=== PATIENT | male | born 1955 | race Caucasian/White ===

== ENCOUNTER → 2017-09-09 07:45 | Outpatient (CLI) | payer MEDICAID, SELFPAY ==
[2017-09-09 08:30] LABS: Anion Gap 7 (5-15); BUN 11 mg/dL (7-18); BUN/Creat Ratio 10.1 RATIO (10-20); Calcium,Total 8.6 mg/dL (8.5-10.1); Chloride 108 mmol/L (98-107); Cholesterol 152 mg/dL (200); Creatinine, Serum 1.09 mg/dL (0.70-1.30); EST Glomerular Filtration Rate 72 mL/min (>60); Est Glom Filt Rate - Afr Amer 88 mL/min (>60); Glucose 106 mg/dL (74-106); High Density Lipoprotein 29 mg/dL; Potassium 4.1 mmol/L (3.5-5.1); Sodium Level 141 mmol/L (136-145); Triglycerides 97 mg/dL; Very Low Density Lipoprotein 19 mg/dL (5-40)
== END ==
PROVIDERS: Family Provider Family Medicine; PCP Family Medicine; Visit Provider Family Medicine
DX: I10 Essential (primary) hypertension (principal)
CPT/HCPCS: 36415; 80048; 80061

== ENCOUNTER → 2018-03-11 10:33 | Outpatient (CLI) | payer MEDICAID, SELFPAY ==
[2018-03-11 12:05] LABS: Anion Gap 6 (5-15); BUN 15 mg/dL (7-18); BUN/Creat Ratio 14.4 RATIO (10-20); Calcium,Total 9.1 mg/dL (8.5-10.1); Chloride 105 mmol/L (98-107); Creatinine, Serum 1.04 mg/dL (0.70-1.30); EST Glomerular Filtration Rate 76 mL/min (>60); Est Glom Filt Rate - Afr Amer 92 mL/min (>60); Glucose 99 mg/dL (74-106); Potassium 4.4 mmol/L (3.5-5.1); Sodium Level 141 mmol/L (136-145)
== END ==
PROVIDERS: Family Provider Family Medicine; PCP Family Medicine; Visit Provider Family Medicine
DX: I10 Essential (primary) hypertension (principal)
CPT/HCPCS: 36415; 80048

== ENCOUNTER → 2018-09-07 08:03 | Outpatient (CLI) | payer MEDICARE, SELFPAY ==
[2018-09-07 10:10] LABS: Absolute Lymphocyte Count 2.22 X10^3/ul (0.83-4.51); Absolute Neutrophil Count 3.6 X10^3/uL (2.0-7.7); Basophil# 0.02 X10^3/uL; Basophil% 0.3 % (0-1); Eosinophil# 0.09 X10^3/uL; Eosinophils% 1.4 % (0-5); Hematocrit 47.7 % (40-54); Hemoglobin 15.9 g/dl (13.0-16.5); Lymphocyte # 2.22 X10^3/ul (4.0); Lymphocyte % 34.2 % (19-41); Mean Corp Hgb Conc 33.3 g/gl (32-36); Mean Corpuscular Hgb 29.2 pg (27.0-32.0); Mean Corpuscular Volume 87.5 fL (80-94); Mean Platelet Vol. 10.1 fl (6.2-12.0); Monocyte# 0.53 X10^3/uL; Monocyte% 8.2 % (0-10); Neutrophil # 3.62 X10^3/uL (2.7-7.7); Neutrophil % 55.7 % (47-70); POSITIVE COUNT NO; POSITIVE DIFFERENTIAL NO; POSITIVE MORPHOLOGY NO; Platelet Count 264 K/mm3 (150-450); RBC Distribution Width CV 13.2 % (11.6-14.6); RBC Distribution Width SD 42.4 fl (35.1-43.9); Red Blood Count 5.45 M/mm3 (4.6-6.2); White Blood Count 6.5 K/mm3 (4.4-11.0)
[2018-09-07 11:33] LABS: Anion Gap 8 (5-15); BUN 13 mg/dL (7-18); BUN/Creat Ratio 12.9 RATIO (10-20); Calcium,Total 9.1 mg/dL (8.5-10.1); Chloride 106 mmol/L (98-107); Cholesterol 179 mg/dL (200); Creatinine, Serum 1.01 mg/dL (0.70-1.30); EST Glomerular Filtration Rate 79 mL/min (>60); Est Glom Filt Rate - Afr Amer 96 mL/min (>60); Glucose 103 mg/dL (74-106); High Density Lipoprotein 33 mg/dL; Potassium 4.5 mmol/L (3.5-5.1); Sodium Level 142 mmol/L (136-145); Triglycerides 130 mg/dL; Very Low Density Lipoprotein 26 mg/dL (5-40)
== END ==
PROVIDERS: Family Provider Family Medicine; PCP Family Medicine; Referring Provider Family Medicine; Visit Provider Family Medicine
DX: I10 Essential (primary) hypertension (principal); K92.2 Gastrointestinal hemorrhage, unspecified
CPT/HCPCS: 36415; 80048; 80061; 85025

== ENCOUNTER → 2018-12-09 11:40 | Outpatient (CLI) | payer MEDICARE, SELFPAY ==
[2017-04-15 09:08] VITALS: BMI 30.3
[2018-12-09 14:05] LABS: Absolute Lymphocyte Count 2.23 X10^3/uL (0.83-4.51); Absolute Neutrophil Count 4.9 X10^3/uL (2.0-7.7); Basophil# 0.02 X10^3/uL; Basophil% 0.3 % (0-1); Eosinophil# 0.08 X10^3/uL; Hematocrit 45.4 % (40-54); Hemoglobin 15.5 g/dL (13.0-16.5); Lymphocyte # 2.23 X10^3/ul (4.0); Mean Corp Hgb Conc 34.1 g/dL (32-36); Mean Corpuscular Hgb 30.2 pg (27.0-32.0); Mean Corpuscular Volume 88.3 fL (80-94); Mean Platelet Vol. 9.8 fl (6.2-12.0); Monocyte# 0.69 X10^3/uL; Monocyte% 8.7 % (0-10); NRBC Flagged by Analyzer 0 % (0-5); Neutrophil # 4.92 X10^3/uL (2.7-7.7); Neutrophil % 61.6 % (47-70); Platelet Count 277 K/mm3 (150-450); RBC Distribution Width CV 12.7 % (11.6-14.6); RBC Distribution Width SD 41.1 fl (35.1-43.9); Red Blood Count 5.14 M/mm3 (4.6-6.2)
[2018-12-09 14:18] LABS: ALB/GLOB Ratio 0.9 RATIO (0.9-2.4); AST(SGOT) 15 U/L (15-37); Alanine Aminotransfer ALT/SGPT 32 U/L (16-61); Albumin, Serum 3.6 g/dL (3.2-5.0); Alkaline Phosphatase 116 U/L (45-117); Anion Gap 6 (5-15); BUN 14 mg/dL (7-18); BUN/Creat Ratio 13.1 RATIO (10-20); Calcium,Total 9.1 mg/dL (8.5-10.1); Chloride 107 mmol/L (98-107); Creatinine, Serum 1.07 mg/dL (0.70-1.30); EST Glomerular Filtration Rate 74 mL/min (>60); Est Glom Filt Rate - Afr Amer 89 mL/min (>60); Globulin 3.9 g/dL (2.2-4.2); Glucose 107 mg/dL (74-106); Lipase 91 U/L (73-393); Potassium 3.9 mmol/L (3.5-5.1); Protein, Total 7.5 g/dL (6.4-8.2); Sodium Level 140 mmol/L (136-145)
== END ==
PROVIDERS: Family Provider Family Medicine; PCP Family Medicine; Referring Provider Family Medicine; Visit Provider Family Medicine
DX: R10.9 Unspecified abdominal pain (principal)
CPT/HCPCS: 36415; 80053; 83690; 85025

== ENCOUNTER → 2018-12-09 12:30 | Outpatient (CLI) | payer MEDICARE, SELFPAY ==
--- NOTE | 2018-12-09 12:50 | CT_ITS ---
STUDY: CT ABDOMEN AND PELVIS WITH CONTRAST REASON FOR EXAM: Male, 63 years old. 2 day history of lower abdominal pain. RADIATION DOSAGE (If Supplied By Facility): CTDIvol = ( 15.27 ) mGy, DLP = ( 958.14 ) mGycm TECHNIQUE: Transaxial images were obtained from the dome of the diaphragm to the symphysis pubis with oral contrast. 100 IV/Oral Isovue 300 was administered. Sagittal and coronal images were reconstructed. Individualized dose optimization techniques were used for this CT. COMPARISON: None. FINDINGS: The visualized lung bases are unremarkable. The visualized portions of the heart are within normal limits. There is decreased attenuation of the liver consistent with steatosis. Normal gallbladder and extrahepatic biliary system. There are multiple benign calcified granulomata of the spleen. Normal pancreas. Normal bilateral adrenal glands. Focal cortical calcification in the lateral inferior aspect of the right kidney. This is unchanged. 8.8 mm cyst in the lower pole of the left kidney. Normal visualized stomach. Normal small intestine. There are multiple colonic diverticula consistent with diverticulosis. The appendix is visualized and appears normal. There is diffuse atherosclerotic calcification of the abdominal aorta, without a demonstrated aneurysm. Normal inferior vena cava. Normal retroperitoneum. Normal urinary bladder. There is enlargement of the prostate gland. There is indentation at the bladder base. Calcifications in the prostate. There is a small umbilical hernia containing fat. Normal osseous structures. CT/Abdomen/Pelvis WITH Contrast IMPRESSION: Sigmoid diverticulosis with thickening of the sigmoid colon. Fatty infiltration of the liver. Electronically Signed: Carlos Chandler, at 16:10 EDT , Service support ,
== END ==
PROVIDERS: Family Provider Family Medicine; PCP Family Medicine; Referring Provider Family Medicine; Visit Provider Family Medicine
DX: K57.30 Diverticulosis of large intestine without perforation or abscess without bleeding (principal); K76.0 Fatty (change of) liver, not elsewhere classified; R10.9 Unspecified abdominal pain
CPT/HCPCS: 36415; 74177; 80053; 83690; 85025; Q9967

== ENCOUNTER → 2019-06-29 | Outpatient (CLI) | payer MEDICARE, SELFPAY ==
[2017-04-15 09:08] VITALS: BMI 30.3
== END | disposition home or self-care (01) ==
LOC: LABSPEC 10:40
PROVIDERS: PCP Family Medicine; Referring Provider Family Medicine; Visit Provider Family Medicine
DX: L02.91 Cutaneous abscess, unspecified (principal)
CPT/HCPCS: 87070; 87075; 87205

== ENCOUNTER → 2019-07-18 08:31 | Outpatient (CLI) | payer MEDICARE, SELFPAY ==
[2017-04-15 09:08] VITALS: BMI 30.3
[2019-07-18 10:32] LABS: Anion Gap 4 (5-15); BUN 17 mg/dL (7-18); BUN/Creat Ratio 16.5 RATIO (10-20); Calcium,Total 8.9 mg/dL (8.5-10.1); Chloride 105 mmol/L (98-107); Cholesterol 163 mg/dL (200); Creatinine, Serum 1.03 mg/dL (0.70-1.30); EST Glomerular Filtration Rate 77 mL/min (>60); Est Glom Filt Rate - Afr Amer 93 mL/min (>60); Glucose 88 mg/dL (74-106); High Density Lipoprotein 31 mg/dL; Potassium 3.8 mmol/L (3.5-5.1); Sodium Level 139 mmol/L (136-145); Triglycerides 165 mg/dL; Very Low Density Lipoprotein 33 mg/dL (5-40)
== END ==
PROVIDERS: PCP Family Medicine; Referring Provider Family Medicine; Visit Provider Family Medicine
DX: I10 Essential (primary) hypertension (principal)
CPT/HCPCS: 36415; 80048; 80061

== ENCOUNTER → 2019-09-16 06:37 | Outpatient (CLI) | payer MEDICARE, SELFPAY ==
--- NOTE | 2019-09-16 16:21 | STRESSREP ---
Stress Test Report Exercise myocardial perfusion stress test. 64-year-old man with a history of chest pain. Stress protocol: Resting EKG demonstrates sinus rhythm with a rate of 57 bpm normal intervals are noted resting blood pressures 144/82 mmHg. The patient exercised according to regular Eddie protocol for a total duration of 6 minutes the maximum heart rate attained was 127 bpm which was 82% of maximum practice heart rate the maximum workload was 7 metabolic equivalents. At rest there were no ST or T wave changes noted to suggest ischemia at peak exercise upsloping ST changes only were noted with no meet the criteria for ischemia. Patient was noted to be fatigued but no angina was present. The test was terminated due to the target heart rate being achieved as well as dyspnea. The maximum heart rate attained was 127 bpm and the maximum blood pressure was 182/80 mmHg with a rate-pressure product of 22,900. Myocardial perfusion protocol. 15.0 mCi of technetium 99m sestamibi was injected at rest. The patient exercised according to regular Eddie protocol for a total duration of 6 minutes at peak exercise 45.0 mCi of technetium 99m sestamibi was injected stress images were obtained stress and rest images were reconstructed and compared in the short axis vertical long horizontal long axis. Gated images were also obtained Perfusion SPECT analysis: Review of the stress images demonstrate normal uptake of tracer noted in all areas of the myocardium the resting images similarly demonstrate normal uptake of tracer noted in all areas of the myocardium. No reversibility is noted to suggest ischemia no previous infarct is noted. Gated SPECT analysis: The gated ejection fraction is 68%. Conclusion: Normal exercise myocardial perfusion stress test with no evidence of ischemia at a moderate workload Good functional capacity. Preserved ejection fraction.
== END ==
PROVIDERS: PCP Family Medicine; Referring Provider Family Medicine; Visit Provider Family Medicine
DX: R07.89 Other chest pain (principal)
CPT/HCPCS: 78452; 93017; A9500; A4216

== ENCOUNTER → 2020-01-18 08:23 | Outpatient (CLI) | payer MEDICARE, SELFPAY ==
[2017-04-15 09:08] VITALS: BMI 30.3
[2020-01-18 10:07] LABS: Anion Gap 3 (5-15); BUN 13 mg/dL (7-18); BUN/Creat Ratio 11.6 RATIO (10-20); Chloride 110 mmol/L (98-107); Creatinine, Serum 1.12 mg/dL (0.70-1.30); EST Glomerular Filtration Rate 70 mL/min (>60); Est Glom Filt Rate - Afr Amer 84 mL/min (>60); Glucose 106 mg/dL (74-106); Potassium 4.4 mmol/L (3.5-5.1); Sodium Level 142 mmol/L (136-145)
== END ==
PROVIDERS: PCP Family Medicine; Referring Provider Family Medicine; Visit Provider Family Medicine
DX: I10 Essential (primary) hypertension (principal)
CPT/HCPCS: 36415; 80048

== ENCOUNTER → 2020-04-23 08:41 | Outpatient (CLI) | payer MEDICARE, SELFPAY ==
[2020-04-11 09:43] VITALS: BMI 33.7
[2020-04-23 09:57] LABS: Anion Gap 5 (5-15); BUN 13 mg/dL (7-18); BUN/Creat Ratio 13.5 RATIO (10-20); Calcium,Total 9.1 mg/dL (8.5-10.1); Chloride 106 mmol/L (98-107); Cholesterol 176 mg/dL (200); Creatinine, Serum 0.96 mg/dL (0.70-1.30); EST Glomerular Filtration Rate 83 mL/min (>60); Est Glom Filt Rate - Afr Amer 100 mL/min (>60); Glucose 98 mg/dL (74-106); High Density Lipoprotein 27 mg/dL; Potassium 4.3 mmol/L (3.5-5.1); Sodium Level 138 mmol/L (136-145); Triglycerides 256 mg/dL; Very Low Density Lipoprotein 51 mg/dL (5-40)
== END ==
PROVIDERS: PCP Family Medicine; Visit Provider Family Medicine
DX: I10 Essential (primary) hypertension (principal)
CPT/HCPCS: 36415; 80048; 80061

== ENCOUNTER → 2020-10-22 08:14 | Outpatient (CLI) | payer MEDICARE, SELFPAY ==
[2020-04-11 09:43] VITALS: BMI 33.7
[2020-10-22 10:27] LABS: Anion Gap 7 (5-15); BUN 15 mg/dL (7-18); BUN/Creat Ratio 15.3 RATIO (10-20); Calcium,Total 9.2 mg/dL (8.5-10.1); Chloride 105 mmol/L (98-107); Cholesterol 174 mg/dL (200); Creatinine, Serum 0.98 mg/dL (0.70-1.30); EST Glomerular Filtration Rate 81 mL/min (>60); Est Glom Filt Rate - Afr Amer 98 mL/min (>60); Glucose 117 mg/dL (74-106); High Density Lipoprotein 29 mg/dL; Potassium 4.2 mmol/L (3.5-5.1); Sodium Level 140 mmol/L (136-145); Triglycerides 133 mg/dL; Very Low Density Lipoprotein 27 mg/dL (5-40)
== END ==
PROVIDERS: PCP Family Medicine; Visit Provider Family Medicine
DX: I10 Essential (primary) hypertension (principal)
CPT/HCPCS: 36415; 80048; 80061

== ENCOUNTER → 2021-04-18 08:30 | Outpatient (CLI) | payer MEDICARE, SELFPAY ==
[2021-04-18 11:17] LABS: Anion Gap 6 (5-15); BUN 15 mg/dL (7-18); BUN/Creat Ratio 14.7 RATIO (10-20); Calcium,Total 9.4 mg/dL (8.5-10.1); Chloride 110 mmol/L (98-107); Cholesterol 171 mg/dL (200); Creatinine, Serum 1.02 mg/dL (0.70-1.30); EST Glomerular Filtration Rate 77 mL/min (>60); Est Glom Filt Rate - Afr Amer 93 mL/min (>60); Glucose 107 mg/dL (74-106); High Density Lipoprotein 28 mg/dL; Potassium 4.2 mmol/L (3.5-5.1); Sodium Level 141 mmol/L (136-145); Triglycerides 117 mg/dL; Very Low Density Lipoprotein 23 mg/dL (5-40)
== END ==
PROVIDERS: PCP Family Medicine; Referring Provider Family Medicine; Visit Provider Family Medicine
DX: I10 Essential (primary) hypertension (principal)
CPT/HCPCS: 36415; 80048; 80061

== ENCOUNTER → 2021-10-14 | Outpatient (CLI) | payer OTHER, SELFPAY ==
[2021-10-14 10:47] LABS: Anion Gap 6 (5-15); BUN 16 mg/dL (7-18); BUN/Creat Ratio 16.6 RATIO (10-20); Calcium,Total 9.3 mg/dL (8.5-10.1); Chloride 109 mmol/L (98-107); Cholesterol 176 mg/dL (200); Creatinine, Serum 0.96 mg/dL (0.70-1.30); EST Glomerular Filtration Rate 83 mL/min (>60); Est Glom Filt Rate - Afr Amer 100 mL/min (>60); Glucose 113 mg/dL (74-106); High Density Lipoprotein 27 mg/dL; Potassium 4.2 mmol/L (3.5-5.1); Sodium Level 139 mmol/L (136-145); Triglycerides 115 mg/dL; Very Low Density Lipoprotein 23 mg/dL (5-40)
== END | disposition home or self-care (01) ==
LOC: MFPLAB 08:29
PROVIDERS: PCP Family Medicine; Visit Provider Family Medicine
DX: I10 Essential (primary) hypertension (principal)
CPT/HCPCS: 36415; 80048; 80061

== ENCOUNTER → 2022-02-20 | Outpatient (CLI) | payer OTHER, SELFPAY ==
[2022-02-20 12:49] LABS: Anion Gap 7 (5-15); BUN 15 mg/dL (7-18); BUN/Creat Ratio 13.4 RATIO (10-20); Chloride 107 mmol/L (98-107); Cholesterol 164 mg/dL (200); Creatinine, Serum 1.12 mg/dL (0.70-1.30); EST Glomerular Filtration Rate 69 mL/min (>60); Est Glom Filt Rate - Afr Amer 84 mL/min (>60); Glucose 104 mg/dL (74-106); High Density Lipoprotein 29 mg/dL; Potassium 4.4 mmol/L (3.5-5.1); Sodium Level 138 mmol/L (136-145); Triglycerides 153 mg/dL; Very Low Density Lipoprotein 31 mg/dL (5-40)
== END | disposition home or self-care (01) ==
LOC: MFPLAB 09:55
PROVIDERS: PCP Family Medicine; Referring Provider Family Medicine; Visit Provider Family Medicine
DX: I10 Essential (primary) hypertension (principal)
CPT/HCPCS: 36415; 80048; 80061

== ENCOUNTER → 2022-05-14 | Outpatient (CLI) | payer MEDICARE, MEDICAID, SELFPAY ==
--- NOTE | 2022-05-14 12:02 | RAD_ITS ---
STUDY: X-RAY CHEST REASON FOR EXAM: Male, 66 years old. COUGH TECHNIQUE: XR Chest 2 Views COMPARISON: Prior comparison studies are not available for review at this time. FINDINGS: There is atherosclerotic calcification of the aortic arch with tortuosity. There are diffuse degenerative changes of the visualized thoracic spine. There is degenerative osteoarthritis of the bilateral shoulders. There is no demonstrated pleural abnormality. Normal size heart. Normal mediastinum and susan. Normal visualized pulmonary arteries. There is no demonstrated abnormality of the visualized soft tissue structures of the upper abdomen. RAD/Chest PA and Lateral IMPRESSION: There are no acute findings. Electronically Signed: Albin Teran MD at 17:44 EST ,
[2022-05-14 15:23] LABS: Hematocrit 46.7 % (40-54); Hemoglobin 15.5 g/dL (13.0-16.5); Mean Corp Hgb Conc 33.2 g/dL (32-36); Mean Corpuscular Hgb 29.4 pg (27.0-32.0); Mean Corpuscular Volume 88.4 fL (80-94); Mean Platelet Vol. 10.2 fl (6.2-12.0); Platelet Count 264 K/mm3 (150-450); RBC Distribution Width SD 42.3 fl (35.1-43.9); Red Blood Count 5.28 M/mm3 (4.6-6.2); White Blood Count 5.8 K/mm3 (4.4-11.0)
[2022-05-14 15:38] LABS: Anion Gap 8 (5-15); BUN 13 mg/dL (7-18); BUN/Creat Ratio 11.1 RATIO (10-20); Calcium,Total 9.4 mg/dL (8.5-10.1); Chloride 100 mmol/L (98-107); Creatinine, Serum 1.17 mg/dL (0.70-1.30); EST Glomerular Filtration Rate 66 mL/min (>60); Est Glom Filt Rate - Afr Amer 80 mL/min (>60); Glucose 128 mg/dL (74-106); Potassium 4.3 mmol/L (3.5-5.1); Sodium Level 134 mmol/L (136-145)
== END | disposition home or self-care (01) ==
PROVIDERS: PCP Family Medicine; Referring Provider Family Medicine; Visit Provider Family Medicine
DX: R05.9 Cough, unspecified (principal)
CPT/HCPCS: 36415; 71046; 80048; 85027

== ENCOUNTER 2022-12-23 08:16 | Emergency (ER) | payer MEDICARE, MEDICAID, SELFPAY ==
[2022-12-23 08:18] VITALS: BP 178/83; PULSE 71; RESP 14; TEMP 36.6; O2SAT 99; BMI 31.5
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
== END 2022-12-23 09:52 | disposition home or self-care (01) ==
PROVIDERS: Emergency Provider Emergency Medicine; PCP Family Medicine; Visit Provider Emergency Medicine
DX: M54.50 Low back pain, unspecified (principal); V59.9XXA Occupant (driver) (passenger) of pick-up truck or van injured in unspecified traffic accident, initial encounter; Z87.891 Personal history of nicotine dependence
CPT/HCPCS: 99282

== ENCOUNTER → 2023-01-22 | Outpatient (CLI) | payer MEDICARE, MEDICAID, SELFPAY ==
--- NOTE | 2023-01-22 10:43 | RAD_ITS ---
EXAM: XR LUMBOSACRAL SPINE, 4 OR 5 VIEWS CLINICAL INDICATION: PAIN TECHNIQUE: Frontal, lateral and bilateral oblique views of the lumbar spine. COMPARISON: No relevant prior studies available. FINDINGS: VERTEBRAE: Unremarkable. Preserved vertebral body height. No fracture. No spondylolisthesis. Preservation of the normal lumbar lordosis. No significant facet arthropathy. DISC SPACES: No acute findings. Disc spaces are maintained. GASTROINTESTINAL TRACT: Unremarkable as visualized. Included bowel gas pattern is non-obstructive. RAD/L/S Spine Min 4 Views IMPRESSION: No evidence of lumbar spinal fracture or spondylolisthesis. Electronically Signed: Evan Aparicio MD at 19:37 EDT ,
== END | disposition home or self-care (01) ==
LOC: MTRAD 10:38
PROVIDERS: PCP Family Medicine; Visit Provider Family Medicine
DX: M54.9 Dorsalgia, unspecified (principal)
CPT/HCPCS: 72110

== ENCOUNTER → 2023-02-02 | Outpatient (CLI) | payer MEDICARE, MEDICAID, SELFPAY ==
[2023-02-02 12:34] LABS: Anion Gap 4 (5-15); BUN 12 mg/dL (7-18); BUN/Creat Ratio 12.2 RATIO (10-20); Calcium,Total 9.7 mg/dL (8.5-10.1); Chloride 104 mmol/L (98-107); Creatinine, Serum 0.99 mg/dL (0.70-1.30); EST Glomerular Filtration Rate 80 mL/min (>60); Est Glom Filt Rate - Afr Amer 97 mL/min (>60); Glucose 112 mg/dL (74-106); PSA,Total- Diagnostic 3.29 ng/mL (0.0-4.0); Potassium 4.6 mmol/L (3.5-5.1); Sodium Level 137 mmol/L (136-145)
== END | disposition home or self-care (01) ==
PROVIDERS: PCP Family Medicine; Referring Provider Family Medicine; Visit Provider Family Medicine
DX: R82.90 Unspecified abnormal findings in urine (principal); R39.11 Hesitancy of micturition
CPT/HCPCS: 36415; 80048; 84153; 87086

== ENCOUNTER → 2023-02-19 | Outpatient (CLI) | payer MEDICARE, MEDICAID, SELFPAY ==
[2023-02-19 10:50] LABS: Cholesterol 180 mg/dL (200); High Density Lipoprotein 32 mg/dL; Triglycerides 163 mg/dL; Very Low Density Lipoprotein 33 mg/dL (5-40)
== END | disposition home or self-care (01) ==
LOC: MFPLAB 08:26
PROVIDERS: PCP Family Medicine; Visit Provider Family Medicine
DX: I10 Essential (primary) hypertension (principal)
CPT/HCPCS: 36415; 80061

== ENCOUNTER → 2023-08-19 | Outpatient (CLI) | payer MEDICARE, MEDICAID, SELFPAY ==
[2023-08-19 10:30] LABS: Anion Gap 4 (5-15); BUN 12 mg/dL (7-18); Calcium,Total 9.3 mg/dL (8.5-10.1); Chloride 110 mmol/L (98-107); Cholesterol 167 mg/dL (200); Creatinine, Serum 1.09 mg/dL (0.70-1.30); EST Glomerular Filtration Rate 71 mL/min (>60); Est Glom Filt Rate - Afr Amer 86 mL/min (>60); Glucose 107 mg/dL (74-106); High Density Lipoprotein 28 mg/dL; Potassium 4.3 mmol/L (3.5-5.1); Sodium Level 140 mmol/L (136-145); Triglycerides 126 mg/dL; Very Low Density Lipoprotein 25 mg/dL (5-40)
== END | disposition home or self-care (01) ==
LOC: MFPLAB 08:41
PROVIDERS: PCP Family Medicine; Visit Provider Family Medicine
DX: I10 Essential (primary) hypertension (principal)
CPT/HCPCS: 36415; 80048; 80061

== ENCOUNTER → 2024-02-18 | Outpatient (CLI) | payer MEDICARE, MEDICAID, SELFPAY ==
[2024-02-18 10:47] LABS: Anion Gap 5 (5-15); BUN 12 mg/dL (7-18); BUN/Creat Ratio 12.8 RATIO (10-20); Calcium,Total 9.6 mg/dL (8.5-10.1); Chloride 109 mmol/L (98-107); Cholesterol 158 mg/dL (200); Creatinine, Serum 0.93 mg/dL (0.70-1.30); EST Glomerular Filtration Rate 85 mL/min (>60); Est Glom Filt Rate - Afr Amer 103 mL/min (>60); Glucose 119 mg/dL (74-106); High Density Lipoprotein 30 mg/dL; Potassium 3.9 mmol/L (3.5-5.1); Sodium Level 140 mmol/L (136-145); Triglycerides 122 mg/dL; Very Low Density Lipoprotein 24 mg/dL (5-40)
== END | disposition home or self-care (01) ==
LOC: MFPLAB 08:33
PROVIDERS: PCP Family Medicine; Visit Provider Family Medicine
DX: I10 Essential (primary) hypertension (principal)
CPT/HCPCS: 36415; 80048; 80061

== ENCOUNTER → 2024-03-01 | Outpatient (CLI) | payer MEDICARE, SELFPAY ==
[2024-03-01 17:03] LABS: PSA,Total- Diagnostic 2.35 ng/mL (0.0-4.0)
== END | disposition home or self-care (01) ==
LOC: LAB 15:19
PROVIDERS: PCP Family Medicine; Referring Provider Urology; Visit Provider Urology
DX: R97.20 Elevated prostate specific antigen [PSA] (principal)
CPT/HCPCS: 36415; 84153

== ENCOUNTER 2024-06-06 17:21 | Inpatient (IN) | payer MEDICARE, SELFPAY ==
[2024-06-06] VITALS (10 sets, daily range): BP systolic 113–148; BP diastolic 63–83; PULSE 58–80; RESP 15–20; TEMP 36.2–36.7; O2SAT 93–99; BMI 29.3; BMI 29.1
--- NOTE | 2024-06-06 17:43 | EKG12_ITS ---
Test Reason : CP Blood Pressure : */* mmHG Vent. Rate : 60 BPM Atrial Rate : 60 BPM P-R Int : 180 ms QRS Dur : 90 ms QT Int : 416 ms P-R-T Axes : 35 -7 26 degrees QTcB Int : 416 ms Normal sinus rhythm Inferior infarct , age undetermined Abnormal ECG Confirmed by VLADIMIR PEREIRA, JOSE CARLOS ([id number]), telegraph editor JAIDEN ALVAREZ ([id number]) on 06/08/2024 6:24:44 AM Referred By: DELGADO/AJ Confirmed By: JOSE CARLOS GILBERT MD
--- NOTE | 2024-06-06 18:11 | EDS_ITS ---
HPI History of Present Illness Chief Complaint: Chest Pain Informant: patient and spouse/S.O. Narrative Narrative: Sent in by PCP for elevated troponin with chest pain symptoms. Patient hard of hearing here with spouse. History of hypertension on medications, hy perlipidemia diet controlled both parents with CABG procedures in their 50s. He has been having 2 weeks of intermittent chest tightness primary before bed and when he awakens. States squeezing sensations that would go away after 5 minutes. No arm numbness no neck pain no jaw pain no dyspnea no nausea no diaphoresis. He initially saw his PCP a week ago had minimal cough put on a Z- Parvez which she started on Thursday. He returned today due to continued symptoms with outpatient labs. This troponin on review was 105. D-dimer 0.56 which is normal for age-adjusted. Chest x-ray reviewed negative. Basic labs normal creatinine normal hemoglobin. However states 45 minutes ago symptoms returned with squeezing sensations he is having intermittent symptoms here in the ER. Denies exertional symptoms. Stress test last time 10 years ago no history of heart caths. He took 1 baby aspirin today. Prior Similar Symptoms: No CVD Risk Factors: Positive for Hypertension, Hypercholesterolemia and Family History 1' </=55; Negative for Diabetes or Smoking PE Risk Factors: Negative for Recent Travel/Surgery, Recent Immobilization or Prior DVT or PE [facility] Medical History Umbilical hernia History of rectal abscess Back pain HTN (hypertension) Home Medications ?Medication ?Instructions ?Recorded ?Last Taken ?Type lisinopril 10 mg tablet 10 mg PO DAILY 01/16/14 06/06/24 History aspirin 81 mg tablet,delayed 81 mg PO DAILY 04/11/20 06/06/24 History release (Adult Low Dose Aspirin) metoprolol tartrate 25 mg tablet 25 mg PO BID 04/11/20 06/06/24 History polyethylene glycol 400 0.25 % eye 1 - 2 drp ophthalmic (eye) DAILY 06/06/24 Unknown History drops (Blink Tears) PRN eye irritation tamsulosin 0.4 mg capsule 0.4 mg PO QHS 06/06/24 06/05/24 History Allergy/AdvReac Type Severity Reaction Status Date / Time tetrahydrozoline Allergy Mild rash Verified 06/06/24 17:22 Family History Father Heart disease CVA (cerebral vascular accident) Mother Heart disease Surgical History History of tooth extraction History of colonoscopy (~2019) History of amputation of toe Social History Smoking Status: Former smoker ROS ROS ED Constitutional Constitutional ED: Denies chills, fever(s) or sweats ENT ENT ED: Denies sore throat Cardiovascular Cardiovascular: Reports chest pain; Denies leg edema, palpitations or racing heartbeat Respiratory/Chest Respiratory/Chest: Denies cough, dyspnea or dyspnea on exertion Gastrointestinal Gastrointestinal: Denies abdominal pain, diarrhea, nausea or vomiting Genitourinary Genitourinary ED: Denies dysuria, hematuria or urinary frequency Musculoskeletal Musculoskeletal: Denies back pain, extremity pain or neck pain Integumentary Denies rash or wounds Neurologic Neurologic: Denies headache(s), paresthesias or weakness EXAM Physical Exam Const Vital Signs: 06/06/24 17:22 06/06/24 18:13 06/06/24 18:16 Temperature 97.2 F L Temperature Source Temporal Pulse Rate 60 64 Respiratory Rate 15 Respiratory Effort Normal Non-Labored Blood Pressure 147/77 H 148/68 H Blood Pressure Mean 100 Pulse Ox 96 Oxygen Delivery Method Room Air 06/06/24 18:21 06/06/24 19:00 06/06/24 19:11 Temperature Temperature Source Pulse Rate 72 64 63 Respiratory Rate 18 18 Respiratory Effort Blood Pressure 126/69 H 125/83 H 125/63 H Blood Pressure Mean 88 97 Pulse Ox 93 93 Oxygen Delivery Method Room Air Positive well nourished and well developed General Appearance ED: well developed and NAD HEENT Reports moist mucous membranes normocephalic and atraumatic Eyes General Eye ED: Yes normal appearance of both eyes Neck full ROM Chest Wall Chest: Negative for tenderness Resp normal respiratory effort and normal air movement Effort and Inspection: symmetric chest movement; Negative for respiratory distress Cardio regular rate, regular rhythm and no murmurs Peripheral Pulses: pulses 2+ throughout GI normal to inspection, nondistended, normoactive bowel sounds and non-tender Palpation: Negative for guarding or rebound tenderness present Extremity normal to inspection General Extremety ED: Negative for edema or tenderness General Extremity: Negative for edema Neuro oriented x3 and no sensory deficits noted Sensorium / Orientation: awake and alert Skin no rashes or lesions noted and no wounds Heart Score History: Highly Suspicious ECG: Normal Age: >/= 65 years Risk Factors: >/= 3 Risk Factors or History of CAD Troponin: >1 - <3 Normal Limit Score: 7 MDM MDM MDM Narrative Medical decision making narrative: Interventions / MDM: Differential diagnosis: Unstable angina, chest pain, NSTEMI Diagnosis considered but do not suspect: Pulm embolism however D-dimer 0.56 outpatient normal for age adjustment. My EKG interpretation: Sinus rate of 60, no ST or T wave changes. Imaging independently reviewed and interpreted by myself: Reviewed chest x-ray report shows no acute process. External documents reviewed: N/A Test considered but not ordered:N/A ED course: Patient with chest pain symptoms come and go even at rest. Symptoms coming ED with normal EKG. Optimize aspirin additional 243 mg. Chest x-ray. Labs were reviewed outpatient. Troponin of 105. Will repeat troponins will order for nitroglycerin. Will need admission. 1899: Repeat troponin 127 up from 105. Currently chest pain-free after 1 nitroglycerin. Blood pressure systolic 105. Will place half-inch Nitropaste. Will discuss with cardiology and hospitalist service. 1907: I discussed with senior support analyst Dr. Valencia, discussed his history. He will plan to do heart cath tomorrow. Will start heparin. Re-evaluation: stable Disposition discussed with patient/family/significant other: Patient and spouse Case discussed with consulting clinician: Cardiology, hospitalist This note was generated with Sviral dictation software. It may contain incorrect words, spelling, and punctuation that were not noted in checking the note before signing. Lab Data Attestation: I reviewed the patient's lab results. Labs: Laboratory Results - last 24 hr 06/06/24 06/06/24 18:06 19:33 PT 13.9 15.4 H INR 1.1 1.2 APTT 28.7 > 200.0 H* Troponin I High Sens 127 H* Critical Care Time Critical Care Time: Yes Critical care time (excluding procedures): 30-74 minutes, Discussing w/Patient &/or Family/Account Development Manager, Discussing w/Consultants, Performing Direct Patient Care at Bedside and - (35 minutes) Discharge Plan Dx/Rx/DC Orders Clinical Impression: Non-ST elevation [place] (NSTEMI), Unstable angina, Chest pain Disposition Disposition: Acute Care Hospital [facility] Discharge Date/Time: 06/06/24 20:26
[2024-06-06] MEDS: Aspirin 81 MG TAB.CHEW 243 MG PO (18:12)
[2024-06-06] MEDS: Nitroglycerin SL (ED/IMG/CATH) 0.4 MG TABLET SL (18:13)
[2024-06-06 18:53] LABS: Troponin-I HS (w/2H Reflex) 127 pg/mL (3.0-78.0)
[2024-06-06] MEDS: Nitroglycerin Oint 1 INCH PACKET TD (19:11)
--- NOTE | 2024-06-06 19:16 | PCM.HP.STD ---
[facility] - [facility] General Date of Admission: 06/06/24 Date of Service: 06/06/24 Chief Complaint: Chest Pain. HPI Narrative KANWAL PIZANO, is a 68 M with a past medical history of essential hypertension; on lisinopril and metoprolol, history of hyperlipidemia; diet-controlled, overweight; with BMI of 29.3 this admission, former tobacco abuse, family history of premature-CAD in both parents; with both having underwent CABG in their 50's, history of umbilical hernia x 2, history of rectal abscess, history of colonoscopy, history of amputation of toe, BPH; on tamsulosin and OA; with chronic back pain who presents to [facility] ER complaining of chest pain. Mr. Pizano reports his symptoms began approximately 2 weeks prior to admission with chest pain that has been intermittent, with a sensation of tightness before bed and when he awakens that has a squeezing sensation that is [id number], at times has been 10/10 and would go away spontaneously after ~5 minutes. He states he was seen by his PCP ~1 week ago and was started on a Z-Parvez this past Thursday, for suspected bronchitis with minimal cough with continued symptoms and initial troponin earlier today of 105 pg/mL consistent with suspected non-ST elevation KS for which he took a baby aspirin and was then instructed by his PCP to immediately come to the ER for further evaluation and treatment. He denies a personal history of coronary artery disease or similar previous episodes. In the ER he had a D-dimer of 0.56 which was normal when adjusted for age and his chest x-ray was negative for acute pathologic changes and he states he has had 4 previous treadmill stress tests that were negative - with the last one done ~8 years ago. He denies associated fever, chills, nausea, vomiting, diarrhea, constipation, diaphoresis or headache but he does admit to return of his severe, squeezing sensation in his chest this evening that also caused him to come to the ER. In the ER he was noted to have a second upwardly trending troponin of 127 pg/mL consistent with suspected non-ST elevation KS and the ER physician spoke to the planning director on-call who plans for heart cath in the a.m. with recommendation for IV heparin and standard treatment. He was then admitted to the PCU for ongoing care for status is expected to extend beyond 2 midnights. [facility] Medical History Umbilical hernia History of rectal abscess Back pain HTN (hypertension) Home Medications ?Medication ?Instructions ?Recorded ?Last Taken ?Type lisinopril 10 mg tablet 10 mg PO DAILY 01/16/14 06/06/24 History aspirin 81 mg tablet,delayed 81 mg PO DAILY 04/11/20 06/06/24 History release (Adult Low Dose Aspirin) metoprolol tartrate 25 mg tablet 25 mg PO BID 04/11/20 06/06/24 History polyethylene glycol 400 0.25 % eye 1 - 2 drp ophthalmic (eye) DAILY 06/06/24 Unknown History drops (Blink Tears) PRN eye irritation tamsulosin 0.4 mg capsule 0.4 mg PO QHS 06/06/24 06/05/24 History Allergy/AdvReac Type Severity Reaction Status Date / Time tetrahydrozoline Allergy Mild rash Verified 06/06/24 17:22 Family History Father Heart disease CVA (cerebral vascular accident) Mother Heart disease Surgical History History of tooth extraction History of colonoscopy (~2019) History of amputation of toe Social History Smoking Status: Former smoker ROS ROS Narrative Review of Systems: Constitutional: Patient denies fever or chills. Eyes: Patient denies changes in vision or discharge from eyes. ENT: Patient denies runny nose, sore throat or ear pain. Resp: Patient denies shortness of breath or cough. CV: Patient admits to chest pain but he denies palpitations, heart racing or lower extremity edema. GI: Patient denies abdominal pain, nausea, vomiting, diarrhea or constipation. : Patient denies dysuria, hematuria or urinary frequency. MSK: Patient denies arthralgias or myalgias. Skin: Patient denies rash, abscess or jaundice. Psych: Patient denies symptoms of uncontrolled depression or anxiety. Neuro: Patient denies headache, paresthesias or focal neurologic deficits. Allergy: Patient denies lip swelling, tongue swelling or urticaria. Hematology: Patient denies easy bleeding or easy bruisability. Endocrinology: Patient denies polyuria, polydipsia or polyphagia. 14 point review of systems otherwise negative except positives noted above in HPI. Vital Signs Vital Signs Vital Signs: 06/06/24 17:22 06/06/24 18:13 06/06/24 18:16 Temperature 97.2 F L Temperature Source Temporal Pulse Rate 60 64 Respiratory Rate 15 Respiratory Effort Normal Non-Labored Blood Pressure 147/77 H 148/68 H Blood Pressure Mean 100 Pulse Ox 96 Oxygen Delivery Method Room Air 06/06/24 18:21 06/06/24 19:00 06/06/24 19:11 Temperature Temperature Source Pulse Rate 72 64 63 Respiratory Rate 18 18 Respiratory Effort Blood Pressure 126/69 H 125/83 H 125/63 H Blood Pressure Mean 88 97 Pulse Ox 93 93 Oxygen Delivery Method Room Air Weight Weight: 204 lb 5.896 oz Body Mass Index (BMI) 29.3 Physical Exam Const alert, oriented x3, no apparent distress and average body habitus General Appearance: cooperative HEENT normocephalic, head/scalp atraumatic, hearing grossly normal bilaterally and moist oral mucous membranes Eyes PERRL, EOMs intact bilaterally and conjunctivae normal Neck no lymphadenopathy and supple Resp normal respiratory effort, no retractions, no use of accessory muscles and clear to auscultation bilaterally Cardio regular rate and regular rhythm GI normal to inspection, nondistended, normoactive bowel sounds, soft to palpation, non-tender and non-distended Extremity normal to inspection, full ROM and no clubbing, cyanosis or edema Skin Skin Narrative: Patient has evidence of rash, abscess or jaundice. Neuro oriented x3, CN's II-XII intact bilaterally, moves all extremities and no focal motor deficits Sensorium / Orientation: awake, alert, oriented to person, oriented to place and oriented to time Speech: speech normal Psych affect normal Results Medical Records Data Attestation: I reviewed the patient's medical records Lab / Micro Data Attestation: I reviewed the patient's lab results. Labs: Laboratory Results - last 24 hr 06/06/24 18:06: Troponin I High Sens 127 H* WBC 9K, hemoglobin 15.9 g/dL, platelet count 277K, MCV 89.6 fL, D-dimer 0.56, sodium 139, potassium 4.5, chloride 108, carbon dioxide 26, BUN 15 mg/dL, creatinine 1.07 mg/dL, glucose 93 mg/dL, calcium 9.5 mg/dL, initial troponin 105 pg/mL, second troponin 127 pg/mL, third troponin 160 pg/mL Imaging [facility] [address] [place] [address] Chest PA and Lateral MR#: [id number] Acct: [id number] Name: KANWAL PIZANO Jr. Rep #: [id number] : 1955 M 68 From: Shaq Chávez MD PCP: Dr. Sharif Javier MD Status: [facility] CLI Study: Chest PA and Lateral Date of Exam: 06/06/24 Exam# [id number] Ordering Dr: Sharif Javier MD STUDY: X-RAY CHEST REASON FOR EXAM: Male, 68 years old. Chest pain. TECHNIQUE: Frontal and lateral views of the chest. COMPARISON: May 14, 2022 FINDINGS: Low volume inspiration with cardiomegaly and aortic tortuosity with calcification, unchanged. RAD/Chest PA and Lateral IMPRESSION: Stable chest with no acute or active cardiopulmonary disease. Electronically Signed: Shaq Chávez MD at 14:36 EST , CC: Dr. Sharif Javier MD ~ Director Internal Communications: Signed Assessment & Plan Assessment/Plan (1) Non-ST elevation KS (NSTEMI): (2) Family history of premature CAD: (3) Essential hypertension: (4) Hyperlipidemia: QUALIFIERS: Hyperlipidemia type: unspecified Qualified Code(s): E78.5 - Hyperlipidemia, unspecified (5) Overweight (BMI 25.0-29.9): PLAN: Plan 1. Non-ST elevation KS; evidenced by initial troponin of 105 pg/mL with second upwardly trending troponin 127 pg/mL in the setting of ongoing chest pain in the setting of a known family history of premature-CAD in both parents; with both having underwent CABG in their 50's - Admit to PCU. Continue aspirin and IV heparin again in the ER plus start high intensity statin and Plavix. Serialize troponin. Give Tylenol as needed for tgre-ye-ntjqymvi (level 1-5/10) pain or fever. Give morphine IV as needed for severe (level 6-10/10) pain. Check echocardiogram to evaluate LVEF. Finally, we will consult [facility] cardiology to see this patient on rounds in the a.m. further recommendations regarding C in a.m. with help appreciated in advance. 2. Essential Hypertension; on lisinopril and metoprolol complicating #1 - Maintain home regimen plus give prn Hydralazine IV for systolic blood pressure > 160 mmHg. 3. History of hyperlipidemia; diet-controlled compounding #1 & #2 - Patient started on high-intensity statin for #1. Check Lipid Profile. 4. Overweight; with BMI of 29.3 this admission - Weight loss will be recommended. Check TSH. 5. Former tobacco abuse - Noted. 6. History of umbilical hernia x 2 - Noted. 7. History of rectal abscess - Noted with no signs of recurrence at this time. 8. History of colonoscopy - Noted. 9. History of amputation of toe - Noted. 10. BPH; on tamsulosin - Resume tamsulosin as previous. 11. OA; with chronic back pain - Give Tylenol prn. 12. DVT prophylaxis - Patient on IV Heparin for #1. Total time: Approximately (but not less than) 55 minutes. Charges/Coding Visit Charges Inpatient E&M: 58524 Init Hosp L2
[2024-06-06 19:19] LABS: International Normalized Ratio 1.1; Prothrombin Time (Protime)PT. 13.9 SECONDS (11.7-14.9)
[2024-06-06 19:20] LABS: Partial Thromboplast Time 28.7 Seconds (24.1-36.2)
[2024-06-06] MEDS: HEPARIN/D5w 25,000 UNITS 25,000 UNITS/250 ML IV.SOLN. 10 UNITS CONT INF (19:26)
[2024-06-06] MEDS: Heparin Injection (Vial) 5,000 UNIT/ML VIAL 4000 UNIT IV (19:27)
--- NOTE | 2024-06-06 19:40 | EKG12_ITS ---
Test Reason : POST-PCI Blood Pressure : */* mmHG Vent. Rate : 52 BPM Atrial Rate : 52 BPM P-R Int : 176 ms QRS Dur : 96 ms QT Int : 450 ms P-R-T Axes : 44 2 20 degrees QTcB Int : 418 ms Sinus bradycardia Otherwise normal ECG Confirmed by VLADIMIR PEREIRA, JOSE CARLOS ([id number]), publishing editor AGUSTIN YAO ([id number]) on 06/08/2024 7:54:28 AM Referred By: Confirmed By: JOSE CARLOS GILBERT MD
[2024-06-06 19:55] LABS: International Normalized Ratio 1.2; Prothrombin Time (Protime)PT. 15.4 SECONDS (11.7-14.9)
--- NOTE | 2024-06-06 20:06 | CM.ED ---
Care Management Face to Face with patient for initial transition planning/care coordination assessment in the ED.? This magnetic tape typewriter operator introduced self and role at [facility]. Patient alert and oriented. Patient willing to participate in assessment and is able to answer all questions appropriately.? Care providers, pharmacy, and demographics verified. Admitting Diagnosis: Chest Pain Other diagnosis history: umbilical hernia, HTN PCP: Yaya Specialists: Chucky Taylor Pharmacy: [facility] Insurance: [employer] Prescription Benefit:?yes Living Will/HPOA: ?Both HPOA and LW on file LNOK: Living Arrangements: handicap accessible apartment.? Patient independent with ADLS and IADLs.?? Transportation: Patient drives DME: grab bars by toilet and shower, emergency pull tab, shower bench, blood pressure cuff, pulse ox HHC: none SNF/Rehab: none Community Resources: none Behavioral Health History: none Patient goals: Patient wishes to discharge home. Disposition Plan: admission to acute; RN CM/SW to follow for discharge planning needs that may arise. Loretta Varma, HOME SERVICE CONSULTANT, COMPUTER SCIENCE INSTRUCTOR
[2024-06-06 20:09] LABS: Partial Thromboplast Time > 200.0 Seconds (24.1-36.2)
[2024-06-06 20:21] LABS: Reflex Troponin-HS? (from REC) Y
[2024-06-06 21:17] LABS: Troponin-I HS 160 pg/mL (3.0-78.0)
[2024-06-06] MEDS: Clopidogrel Bisulfate 75 MG Tablet PO (22:03)
[2024-06-06] MEDS: Tamsulosin HCl 0.4 MG Capsule PO (22:03)
[2024-06-06] MEDS: Metoprolol Tartrate 25 MG Tablet PO (22:05)
[2024-06-06] MEDS: Atorvastatin Calcium 80 MG Tablet PO (22:05)
[2024-06-07] VITALS (14 sets, daily range): BP systolic 104–133; BP diastolic 55–90; PULSE 51–58; RESP 14–18; TEMP 36.4–36.8; O2SAT 92–100
[2024-06-07 02:10] LABS: Troponin-I HS 220 pg/mL (3.0-78.0)
[2024-06-07 02:25] LABS: Partial Thromboplast Time 116.6 Seconds (24.1-36.2)
[2024-06-07] MEDS: Lisinopril 10 MG Tablet PO (05:34)
[2024-06-07] MEDS: Metoprolol Tartrate 25 MG Tablet PO ×2 (05:34→22:05)
[2024-06-07] MEDS: Clopidogrel Bisulfate 75 MG Tablet PO (05:34)
[2024-06-07] MEDS: Aspirin E.C. 81 MG Tablet PO (05:34)
--- NOTE | 2024-06-07 05:55 | EKG12_ITS ---
Test Reason : AM EKG Blood Pressure : */* mmHG Vent. Rate : 57 BPM Atrial Rate : 57 BPM P-R Int : 192 ms QRS Dur : 94 ms QT Int : 446 ms P-R-T Axes : 28 0 13 degrees QTcB Int : 434 ms Sinus bradycardia with Premature supraventricular complexes and Fusion complexes Otherwise normal ECG When compared with ECG of 06-Jun-2024 20:38, MANUAL COMPARISON REQUIRED DATA IS UNCONFIRMED Confirmed by VLADIMIR PEREIRA, JOSE CARLOS ([id number]), editor house organ AGUSTIN YAO ([id number]) on 06/08/2024 7:57:30 AM Referred By: MONAE Confirmed By: JOSE CARLOS GILBERT MD
--- NOTE | 2024-06-07 05:55 | ECHOCS_ITS ---
Reason For Study: s/p IN Procedure This was a 2D Doppler, Color Flow transthoracic echocardiogram. Contrast injection was performed. Exam performed portable in patient room. Left Ventricle Normal LV size. The estimated ejection fraction is 45 %. No evidence for diastolic dysfunction. [place] : Hypokinetic. Right Ventricle Normal RV size. Normal systolic function. Atria The left and right atria are normal. No doppler evidence for ASD. Bubble contrast study negative for right to left interatrial shunt. Mitral Valve There is no mitral valve stenosis. Trivial mitral valve insufficiency. Tricuspid Valve There is no tricuspid stenosis. Unable to estimate RV systolic pressure due to inadequate jet, pulmonary artery pressure probably normal. Aortic Valve Trisinus/trileaflet aortic valve. There is no aortic stenosis. No aortic valve insufficiency. Pulmonic Valve There is no pulmonic valvular stenosis. Trivial pulmonic valve insufficiency. Great Vessels Normal aortic root. Pericardium/Pleural No pericardial effusion. Medication Diluted definity 1.5ml given slow IV push to enhance endocardial definition. Performed a rapid injection of agitated mix of 9 cc saline and 1cc air to assess for atrial septal defect. MMode/2D Measurements & Calculations LVIDd: 4.9 cm IVSd: 0.99 cm Ao root diam: 3.2 cm LVIDs: 3.6 cm LVPWd: 0.96 cm RVDd: 3.2 cm FS: 27.6 % LAV(MOD-bp): 37.1 ml LVAd ap4: 28.1 cm2 SV(MOD-sp4): 49.3 ml LAV(MOD-bp) Indexed: 17.7 ml/m2 LVLd ap4: 7.6 cm SI(MOD-sp4): 23.5 ml/m2 LAV(MOD-sp2): 42.3 ml EDV(MOD-sp4): 85.2 ml LAV(MOD-sp4): 31.9 ml EDV(sp4-el): 88.2 ml LVAs ap4: 16.6 cm2 LVLs ap4: 6.5 cm ESV(MOD-sp4): 36.0 ml ESV(sp4-el): 35.8 ml EF(MOD-sp4): 57.8 % EF(sp4-el): 59.4 % SV(sp4-el): 52.3 ml LA A4 area: 14.3 cm2 LA dimension(2D): 4.3 cm RA A4 area: 8.6 cm2 TAPSE: 2.0 cm Time Measurements MV dec time: 0.24 sec Doppler Measurements & Calculations MV E max bryan: 57.2 cm/sec Lat Peak E' Bryan: 6.9 cm/sec Med Peak E' Bryan: 5.9 cm/sec MV A max bryan: 77.1 cm/sec E/E' lat: 8.2 E/E' med: 9.6 MV E/A: 0.74 MV dec slope: 234.8 cm/sec2 Ao V2 max: 131.5 cm/sec LV V1 max: 86.8 cm/sec Ao max P.9 mmHg LV V1 max P.0 mmHg Ao V2 mean: 99.0 cm/sec Ao mean P.2 mmHg Ao V2 VTI: 29.8 cm PA V2 max: 114.4 cm/sec PI end-d bryan: 86.6 cm/sec ECHO/Echo Complete W/ Contrast Interpretation Summary The estimated ejection fraction is 45 %. No evidence for diastolic dysfunction. [place] : Hypokinetic. Trivial mitral valve insufficiency. Ordering Physician: Anthony Kim Referring Physician: Sharif Javier Performed By: Rocio Boyle, RDCS, RVT
[2024-06-07 06:23] LABS: Hematocrit 43.8 % (40-54); Hemoglobin 14.9 g/dL (13.0-16.5); Mean Corpuscular Hgb 30.3 pg (27.0-32.0); Mean Platelet Vol. 9.7 fl (6.2-12.0); Platelet Count 221 K/mm3 (150-450); RBC Distribution Width CV 12.6 % (11.6-14.6); RBC Distribution Width SD 41.3 fl (35.1-43.9); Red Blood Count 4.92 M/mm3 (4.6-6.2); White Blood Count 8.4 K/mm3 (4.4-11.0)
[2024-06-07 06:54] LABS: ALB/GLOB Ratio 0.9 RATIO (0.9-2.4); AST(SGOT) 10 U/L (15-37); Alanine Aminotransfer ALT/SGPT 21 U/L (16-61); Albumin, Serum 3.3 g/dL (3.2-5.0); Alkaline Phosphatase 100 U/L (45-117); Anion Gap 7 (5-15); BUN 13 mg/dL (7-18); BUN/Creat Ratio 13.2 RATIO (10-20); Calcium,Total 9.2 mg/dL (8.5-10.1); Chloride 109 mmol/L (98-107); Cholesterol 146 mg/dL (200); Creatinine, Serum 0.98 mg/dL (0.70-1.30); EST Glomerular Filtration Rate 80 mL/min (>60); Est Glom Filt Rate - Afr Amer 96 mL/min (>60); Estimated Creatinine Clearance 80.04 ml/min; Globulin 3.5 g/dL (2.2-4.2); Glucose 113 mg/dL (74-106); High Density Lipoprotein 30 mg/dL; Potassium 4.2 mmol/L (3.5-5.1); Protein, Total 6.8 g/dL (6.4-8.2); Sodium Level 139 mmol/L (136-145); Triglycerides 118 mg/dL; Very Low Density Lipoprotein 24 mg/dL (5-40)
[2024-06-07 07:29] LABS: Troponin-I HS 242 pg/mL (3.0-78.0)
--- NOTE | 2024-06-07 08:24 | PCM.PN.HOSP ---
Reason for Visit Reason for Visit: Chest pain Subjective Subjective Mr. Gutierrez is a 68-year-old white male who presents emergency department at [facility] on 06/06/2024 with a chief complaint of chest pain. Patient does have a history of tobacco abuse, hypertension, and hyperlipidemia on no medications. He does have a family history of premature coronary disease in both parents. He indicated both parents underwent CABG in their 50s. Patient reported that about 2 weeks prior to presentation he started having chest pain that was intermittent. It began with a sensation of tightness before he went to bed and when he awoke in he had squeezing sensation that was moderate to severe. He reported at times will be 10 out of 10 but then would go away spontaneously after about 5 minutes. He was seen by his primary care physician about 1 week ago and was started on Z-Parvez for suspected bronchitis. He started antibiotics on Thursday. He was followed up by his PCP on the day of presentation and stat troponin was obtained and was found to be in 105 so he was referred emergently to the emergency department. Patient reported he had nothing like this previously. Patient did have a stress test about 8 years ago that was negative. Vital signs on presentation showed temperature 97.2, heart rate 60, blood pressure was 147/77, respiratory rate was 15 and pulse ox was 96% on room air. CBC was unremarkable. D-dimer was 0.56 but when age corrected was normal. Coags were unremarkable. Chemistry panel was unremarkable. Initial troponin was 105 with an uptrend to a peak of 242 at this time. Cholesterol was obtained and found to be total 146, LDL 92, HDL of 30. TSH was 3.08. EKG was sinus rhythm with a heart rate of 60, normal intervals and no ST-T wave changes concerning for acute ischemia. The case was discussed with cardiology by the emergency department physician they recommended a heparin drip and admission for cardiac catheterization on the a.m. of 06/07/2024. Objective Data Objective Data Vital Signs: Vital Signs Temp Pulse Resp BP Pulse Ox O2 Del Method 97.5 F L 58 L 18 130/79 H 95 Room Air 06/07/24 08:01 06/07/24 08:01 06/07/24 08:01 06/07/24 08:01 06/07/24 08:01 06/07/24 08:01 Oxygen Delivery Method Room Air Weight: 92.2 kg Body Mass Index (BMI) 29.1 Intake & Output: Intake and Output for Last 24 Hours 06/05/24 06/06/24 06/07/24 23:59 23:59 23:59 Intake Total 70 / 70 Balance 70 / 70 Lab / Micro Data 06/07/24 06:12 06/07/24 06:12 Labs: Laboratory Results - last 24 hr 06/06/24 18:06: PT 13.9, INR 1.1, APTT 28.7, Troponin I High Sens 127 H* 06/06/24 19:33: PT 15.4 H, INR 1.2, APTT > 200.0 H* 06/06/24 20:36: Troponin I High Sens 160 H* 06/07/24 01:29: APTT 116.6 H*, Troponin I High Sens 220 H* 06/07/24 06:12: WBC 8.4, RBC 4.92, Hgb 14.9, Hct 43.8, MCV 89.0, MCH 30.3, MCHC 34.0, RDW Std Deviation 41.3, RDW Coeff of Yousuf 12.6, Plt Count 221, MPV 9.7, Sodium 139, Potassium 4.2, Chloride 109 H, Carbon Dioxide 23.0, Anion Gap 7, BUN 13, Creatinine 0.98, Estim Creat Clear Calc 80.04, Est GFR (MDRD) Af Amer 96, Est GFR (MDRD) Non-Af 80, BUN/Creatinine Ratio 13.2, Glucose 113 H, Calcium 9.2, Total Bilirubin 0.60, AST 10 L, ALT 21, Alkaline Phosphatase 100, Troponin I High Sens 242 H*, Total Protein 6.8, Albumin 3.3, Globulin 3.5, Albumin/Globulin Ratio 0.9, Triglycerides 118, Cholesterol 146, LDL Cholesterol 92, VLDL Cholesterol 24, HDL Cholesterol 30 L, TSH 3.080 Physical Exam Const alert, oriented x3, no apparent distress and well nourished; Negative for average body habitus Constitutional Narrative: Overweight, older, white male, sitting up in bed, appears comfortable, nontoxic, at bedside HEENT head/scalp atraumatic and moist oral mucous membranes HEENT Narrative: Mallampati 2-3, no thrush Head and Scalp: normocephalic Resp normal respiratory effort, no retractions, no use of accessory muscles and clear to auscultation bilaterally Auscultation: Negative for rales, rhonchi or wheezes Cardio regular rate, regular rhythm, S1 normal heart sound, S2 normal heart sound, no murmurs, no rub, no gallops and no clicks GI normal to inspection, nondistended, normoactive bowel sounds, soft to palpation and non-tender GI Narrative: Protuberant abdomen Extremity no clubbing, cyanosis or edema Extremity Narrative: Right radial post catheterization compression device in place, left radial pulse 2+, pedal pulses are 2+ Neuro oriented x3, moves all extremities and no focal motor deficits Speech: speech normal Psych Psych Narrative: Affect is a bit strange, eye contact is good and patient interacts appropriately answering all questions without difficulty, does seem a bit anxious Assessment & Plan Assessment/Plan (1) Unstable angina: (2) Non-ST elevation [place] (NSTEMI): PLAN: Plan Unstable angina/NSTEMI -Marked family history of vascular disease including heart disease and stroke -Patient initially sounds like he had unstable angina but now enzymes are trending up -Initial troponin 105 with an uptrend to 242 -Continue home lisinopril -Continue metoprolol -Continue home aspirin -Patient was given 1 dose of Plavix on admission we will hold this for now until cardiac catheterization can be performed to ascertain ongoing needs -Start atorvastatin 80 mg nightly as LDL on lipid panel was 92 -Continue heparin drip -Echocardiogram is pending -As needed nitroglycerin available -Cardiology consultation pending Essential hypertension/hyperlipidemia -Lipids have been diet controlled at this time however LDL is elevated at 92 -Start atorvastatin 80 mg nightly -Continue home lisinopril -Continue home metoprolol -Goal blood pressure should consistently less than 130/80 -Continue to monitor BPH with obstruction -Continue home Flomax Overweight -BMI 29.2 -Recommend weight loss -Complicates treatment, prognosis, outcomes History of tobacco abuse -Remote -Encouraged ongoing cessation CODE STATUS -Not ordered on admission--> will need discussed with patient Charges/Coding Visit Charges Inpatient E&M: 75501 Subs Hosp L2
[2024-06-07 10:16] LABS: Partial Thromboplast Time 46.2 Seconds (24.1-36.2)
--- NOTE | 2024-06-07 11:26 | PCM.CONS.C ---
Assessment & Plan Assessment/Plan (1) Chest pain: QUALIFIERS: Chest pain type: chest pain due to myocardial ischemia Ischemic chest pain type: unstable angina pectoris Qualified Code(s): I20.0 - Unstable angina PLAN: Will proceed with coronary angiography. Risks and benefits discussed with the patient in detail. (2) Non-ST elevation CO (NSTEMI): HPI Consult Data Date of Consult: 06/07/24 HPI Narrative Reason for Consultation: Non-STEMI HPI Narrative: KANWAL PIZANO, is a 68 M who presents with retrosternal pressure-like chest pain. His troponin was mildly elevated. Patient does have a strong family history of coronary artery disease, hypertension, dyslipidemia. He smoked from the age of [age] and quit after that. Review of systems: All systems reviewed. All else is negative except that in HPI [facility] Medical History Umbilical hernia History of rectal abscess Back pain HTN (hypertension) Home Medications ?Medication ?Instructions ?Recorded ?Last Taken ?Type lisinopril 10 mg tablet 10 mg PO DAILY 01/16/14 06/06/24 History aspirin 81 mg tablet,delayed 81 mg PO DAILY 04/11/20 06/06/24 History release (Adult Low Dose Aspirin) metoprolol tartrate 25 mg tablet 25 mg PO BID 04/11/20 06/06/24 History polyethylene glycol 400 0.25 % eye 1 - 2 drp ophthalmic (eye) DAILY 06/06/24 Unknown History drops (Blink Tears) PRN eye irritation tamsulosin 0.4 mg capsule 0.4 mg PO QHS 06/06/24 06/05/24 History Allergy/AdvReac Type Severity Reaction Status Date / Time tetrahydrozoline Allergy Mild rash Verified 06/06/24 17:22 Family History Father Heart disease CVA (cerebral vascular accident) Mother Heart disease Surgical History History of tooth extraction History of colonoscopy (~2019) History of amputation of toe Social History Smoking Status: Former smoker Physical Exam Const alert and oriented x3 HEENT normocephalic Eyes no scleral icterus Resp normal respiratory effort Extremity no pedal edema Skin no rashes or lesions noted Psych mental status grossly normal Risk Stratification Risk Stratification Applicable: No Charges/Coding Visit Charges Inpatient E&M: 53817 Init Hosp L2 Objective Data Vital Signs: Vital Signs Temp Pulse Resp BP Pulse Ox O2 Del Method 97.5 F L 58 L 18 130/79 H 92 Room Air 06/07/24 08:01 06/07/24 08:01 06/07/24 08:01 06/07/24 08:01 06/07/24 10:51 06/07/24 10:51 Oxygen Delivery Method Room Air Weight: 203 lb 4.259 oz Body Mass Index (BMI) 29.1 Intake & Output: Intake and Output for Last 24 Hours 06/05/24 06/06/24 06/07/24 23:59 23:59 23:59 Intake Total 112.82 / 112.82 Balance 112.82 / 112.82 Lab / Micro Data 06/07/24 06:12 06/07/24 06:12 Labs: Laboratory Results - last 24 hr 06/06/24 18:06: PT 13.9, INR 1.1, APTT 28.7, Troponin I High Sens 127 H* 06/06/24 19:33: PT 15.4 H, INR 1.2, APTT > 200.0 H* 06/06/24 20:36: Troponin I High Sens 160 H* 06/07/24 01:29: APTT 116.6 H*, Troponin I High Sens 220 H* 06/07/24 06:12: WBC 8.4, RBC 4.92, Hgb 14.9, Hct 43.8, MCV 89.0, MCH 30.3, MCHC 34.0, RDW Std Deviation 41.3, RDW Coeff of Yousuf 12.6, Plt Count 221, MPV 9.7, Sodium 139, Potassium 4.2, Chloride 109 H, Carbon Dioxide 23.0, Anion Gap 7, BUN 13, Creatinine 0.98, Estim Creat Clear Calc 80.04, Est GFR (MDRD) Af Amer 96, Est GFR (MDRD) Non-Af 80, BUN/Creatinine Ratio 13.2, Glucose 113 H, Calcium 9.2, Total Bilirubin 0.60, AST 10 L, ALT 21, Alkaline Phosphatase 100, Troponin I High Sens 242 H*, Total Protein 6.8, Albumin 3.3, Globulin 3.5, Albumin/Globulin Ratio 0.9, Triglycerides 118, Cholesterol 146, LDL Cholesterol 92, VLDL Cholesterol 24, HDL Cholesterol 30 L, TSH 3.080 06/07/24 09:48: APTT 46.2 H Cardiology Labs/Tests 06/06/24 18:06: PT 13.9, INR 1.1, APTT 28.7 06/06/24 19:33: PT 15.4 H, INR 1.2, APTT > 200.0 H* 06/07/24 01:29: APTT 116.6 H* 06/07/24 06:12: WBC 8.4, RBC 4.92, Hgb 14.9, Hct 43.8, MCV 89.0, MCH 30.3, MCHC 34.0, Plt Count 221, MPV 9.7, Sodium 139, Potassium 4.2, Chloride 109 H, Carbon Dioxide 23.0, Anion Gap 7, BUN 13, Creatinine 0.98, Est GFR (MDRD) Af Amer 96, Est GFR (MDRD) Non-Af 80, BUN/Creatinine Ratio 13.2, Glucose 113 H, Calcium 9.2, Total Bilirubin 0.60, Triglycerides 118, Cholesterol 146, LDL Cholesterol 92, VLDL Cholesterol 24, HDL Cholesterol 30 L 06/07/24 09:48: APTT 46.2 H Rhythm: EKG: ECHO: Stress Test: Cardiac Cath: PCI: CT Surgery: Holter monitor: EPS: PPM: CXR: Chest CT Scan:
--- NOTE | 2024-06-07 13:00 | EKG12_ITS ---
Test Reason : AM EKG Blood Pressure : */* mmHG Vent. Rate : 54 BPM Atrial Rate : 54 BPM P-R Int : 188 ms QRS Dur : 90 ms QT Int : 450 ms P-R-T Axes : 50 -5 1 degrees QTcB Int : 426 ms Sinus bradycardia Inferior infarct , age undetermined Abnormal ECG When compared with ECG of 07-Jun-2024 13:08, MANUAL COMPARISON REQUIRED DATA IS UNCONFIRMED Confirmed by VLADIMIR PEREIRA, JOSE CARLOS ([id number]), editorial writer AGUSTIN AYO ([id number]) on 06/09/2024 1:29:55 PM Referred By: Confirmed By: JOSE CARLOS GILBERT MD
--- NOTE | 2024-06-07 13:24 | CRPHASE1 ---
Patient Communication Patient Information Former Patient:: Phase I PHII Cardiac Rehab Discussed with Patient:: Yes Guide to Cardiac Rehab Given to Patient:: Yes Cardiac Rehab Facility Choice List Given to Patient:: Yes Communication to Cardiac Rehab Sifter Operator:: Courtney Valencia Refer Phase II Cardiac Rehab:: Yes Cardiac Rehabilitation Info Program Information Cardiac Rehabilitation Program Information: Cardiac Rehab The cardiac rehab team at [facility] consists of highly skilled exercise physiologists, nurses, respiratory therapists and physicians working together with you. Our purpose is to help you have a full recovery and achieve the goals you set for yourself. Over the years many of our patients have returned to activities they assumed they would never do again! We can help restore your confidence and motivation to make lifestyle changes that can have a significant impact on your health and quality of life! We can help answer questions and concerns you may have about exercise, lifestyle, medications, diet, stress and anxiety which are common following a hospitalization. WE monitor ECG and vital signs during exercise and discuss your progress with you and report to your physician(s). Cardiac Rehab is proven to help reduce readmissions, improve functional capacity and lower recurrence of problems with your heart. Our Cardiac Rehab program is Certified by the [place] [employer] Pulmonary [employer] (AACVPR) and Accredited by the [employer] through our [facility]. You can contact us at . We invite you to call us with your questions or to get started in our program. If you have other questions or concerns be sure to ask your physician/provider during your follow-up visit. WE look forward to seeing you!
--- NOTE | 2024-06-07 13:26 | CRPH1.INSTRU ---
General Education Discussed with Patient CAD and cardiac anatomy and function:: Patient communicates acknowledgment Explanation of diagnoses and procedures:: Patient communicates acknowledgment Sign/Symptoms of UT:: Patient communicates acknowledgment Antiplatelet therapy: Patient communicates acknowledgment Proper use of NTG-SL: Patient communicates acknowledgment Emergency procedures and activation of EMS: Patient communicates acknowledgment Compliance of all prescribed medications: Patient communicates acknowledgment Smoking Risk Factors Patient Nicotine/Smoking Risk Factors Are:: Non-smoker Recommendations Recommendations Include:: Second-hand smoke recommendation Response Code Nicotine/Smoking Response Code:: Patient communicates acknowledgment Dyslipidemia Recommendations Recommendations Include:: Lipid profile not available Response Code Dyslipidemia Response Code:: Patient communicates acknowledgment Overweight/Obesity Risk Factors Patient Overweight/Obesity Risk Factors Are:: Overweight = 26-29 Recommendations Recommendations Include:: Weight loss of 5-10%, Reduced calorie diet and Exercise 5-7 times/week Response Code Overweight/Obesity:: Patient communicates acknowledgment Hypertension Recommendations Recommendations Include:: Maintain BP <130/85 Response Code Hypertension:: Patient communicates acknowledgment Heart Disease Recommendations Recommendations Include:: Educated family members of their risk and Educated family members of importance of prevention of heart disease Response Code Heart Disease Response Code:: Patient communicates acknowledgment Diabetes Risk Factors Patient Diabetes Risk Factors Are:: No documented hx of diabetes Response Code Diabetes:: Patient communicates acknowledgment Metabolic Syndrome Recommendations Recommendations Include:: Does not meet criteria Sedentary Recommendations Recommendations Include:: Benefits of regular exercise, Discussed home walking program and Monitored Outpatient Cardiac Rehab Response Code Sedentary Response Code:: Patient communicates acknowledgment Stress Recommendations Recommendations Include:: Identification of stressors, and assessment of coping skills and Stress management techniques Response Code Stress Response Code:: Patient communicates acknowledgment
--- NOTE | 2024-06-07 15:05 | CHAPLAIN ---
Type of Pastoral Visit _x__ Initial Visit ___ Follow-up Visit ___ On-call Visit ___ General Patient Visit ___ Spiritual Assessment ___ Family Conference ___ Bereavement ___ Rapid Response ___ Code Blue ___ Other (describe below) Pastoral Care Referral From _x__ Patient ___ Family ___ Nurse ___ Physician ___ Television Camera Operator ___ Rack Production Worker ___ Other (describe below) Sacrament/Intervention _x__ Active listening ___ Anointing ___ Rastafari ___ Bereavement ___ Communion _x__ Bianka exploration ___ _x__ Life review _x__ Prayer ___ Reconciliation ___ Sacrament of Sick _x__ Supportive presence ___ Wedding ___ Other (describe below) Pastoral Comments patient is eager to talk with the restoration officer and 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
[2024-06-07] MEDS: Tamsulosin HCl 0.4 MG Capsule PO (22:04)
[2024-06-07] MEDS: Atorvastatin Calcium 80 MG Tablet PO (22:04)
[2024-06-07] MEDS: TICAGRELOR 90 MG TABLET PO (22:05)
[2024-06-07] MEDS: 0.9% Saline Lock 10 ML Syringe IV (22:07)
[2024-06-08 05:05] VITALS: BP 133/71; PULSE 56; RESP 16; TEMP 36.8; O2SAT 94
[2024-06-08 05:26] LABS: Hematocrit 44.3 % (40-54); Hemoglobin 14.9 g/dL (13.0-16.5); Mean Corp Hgb Conc 33.6 g/dL (32-36); Mean Corpuscular Hgb 29.6 pg (27.0-32.0); Mean Corpuscular Volume 87.9 fL (80-94); Mean Platelet Vol. 9.5 fl (6.2-12.0); Platelet Count 225 K/mm3 (150-450); RBC Distribution Width CV 12.6 % (11.6-14.6); RBC Distribution Width SD 40.3 fl (35.1-43.9); Red Blood Count 5.04 M/mm3 (4.6-6.2); White Blood Count 9.4 K/mm3 (4.4-11.0)
[2024-06-08 05:48] LABS: ALB/GLOB Ratio 0.9 RATIO (0.9-2.4); AST(SGOT) 12 U/L (15-37); Alanine Aminotransfer ALT/SGPT 18 U/L (16-61); Albumin, Serum 3.2 g/dL (3.2-5.0); Alkaline Phosphatase 96 U/L (45-117); Anion Gap 6 (5-15); BUN 15 mg/dL (7-18); BUN/Creat Ratio 14.6 RATIO (10-20); Calcium,Total 9.2 mg/dL (8.5-10.1); Chloride 108 mmol/L (98-107); Creatinine, Serum 1.03 mg/dL (0.70-1.30); EST Glomerular Filtration Rate 76 mL/min (>60); Est Glom Filt Rate - Afr Amer 92 mL/min (>60); Estimated Creatinine Clearance 76.15 ml/min; Globulin 3.5 g/dL (2.2-4.2); Glucose 111 mg/dL (74-106); Potassium 4.2 mmol/L (3.5-5.1); Protein, Total 6.7 g/dL (6.4-8.2); Sodium Level 137 mmol/L (136-145)
[2024-06-08 07:40] VITALS: O2SAT 93
--- NOTE | 2024-06-08 10:00 | EKG12_ITS ---
Test Reason : CP ADMIT Blood Pressure : */* mmHG Vent. Rate : 56 BPM Atrial Rate : 56 BPM P-R Int : 180 ms QRS Dur : 90 ms QT Int : 422 ms P-R-T Axes : 37 0 31 degrees QTcB Int : 407 ms Sinus bradycardia Otherwise normal ECG When compared with ECG of 06-Jun-2024 17:36, MANUAL COMPARISON REQUIRED DATA IS UNCONFIRMED Confirmed by VLADIMIR PERERIA, JOSE CARLOS ([id number]), book editor AGUSTIN YAO ([id number]) on 06/08/2024 7:58:08 AM Referred By: MONAE Confirmed By: JOSE CARLOS GILBERT MD
[2024-06-08 10:29] VITALS: BP 121/72; PULSE 64; RESP 16; TEMP 36.6; O2SAT 92
--- NOTE | 2024-06-08 10:29 | EKG12_ITS ---
Test Reason : CP Blood Pressure : */* mmHG Vent. Rate : 68 BPM Atrial Rate : 68 BPM P-R Int : 182 ms QRS Dur : 88 ms QT Int : 416 ms P-R-T Axes : 36 0 14 degrees QTcB Int : 442 ms Normal sinus rhythm Inferior infarct , age undetermined Abnormal ECG When compared with ECG of 08-Jun-2024 05:58, MANUAL COMPARISON REQUIRED DATA IS UNCONFIRMED Confirmed by VLADIMIR PEREIRA, JOSE CARLOS ([id number]), greeting card editor AGUSTIN YAO ([id number]) on 06/09/2024 1:31:48 PM Referred By: ROSANNE Confirmed By: JOSE CARLOS GILBERT MD
[2024-06-08 10:33] VITALS: BP 121/72; PULSE 64
[2024-06-08] MEDS: Metoprolol Tartrate 25 MG Tablet PO (10:33)
[2024-06-08] MEDS: Aspirin E.C. 81 MG Tablet PO (10:33)
[2024-06-08] MEDS: Lisinopril 10 MG Tablet PO (10:33)
[2024-06-08] MEDS: TICAGRELOR 90 MG TABLET PO (10:33)
--- NOTE | 2024-06-08 11:39 | DS.PCM_ITS ---
Providers Date of Admission: 06/06/24 Date of Discharge: 06/08/24 Primary Care Physician: Dr. Sharif Javier MD Consultations 06/06/24 20:29 Consult: Cardiology Routine Consulting Provider: [facility] Reason for Consult: Chest Pain EMERGENT Consult: No MD Notified: Yes Date Notified: 06/06/24 Time Notified: 19:37 Method of Notification: ED Physician Initiated Method of Consult:: In-Person Reason For Visit: NON-ST ELEVATION SC Diagnosis Discharge Diagnosis (1) Unstable angina: Status: Acute Code(s): I20.0 - Unstable angina (2) Non-ST elevation SC (NSTEMI): Status: Acute Code(s): I21.4 - Non-ST elevation (NSTEMI) myocardial infarction Plan Unstable angina/NSTEMI -Marked family history of vascular disease including heart disease and stroke -Patient initially sounds like he had unstable angina but now enzymes are trending up -Initial troponin 105 with an uptrend to 242 -Continue home lisinopril -Continue metoprolol -Continue home aspirin -Patient was given 1 dose of Plavix on admission we will hold this for now until cardiac catheterization can be performed to ascertain ongoing needs -Start atorvastatin 80 mg nightly as LDL on lipid panel was 92 -Continue heparin drip -Echocardiogram is pending -As needed nitroglycerin available -Cardiology consultation pending Essential hypertension/hyperlipidemia -Lipids have been diet controlled at this time however LDL is elevated at 92 -Start atorvastatin 80 mg nightly -Continue home lisinopril -Continue home metoprolol -Goal blood pressure should consistently less than 130/80 -Continue to monitor BPH with obstruction -Continue home Flomax Overweight -BMI 29.2 -Recommend weight loss -Complicates treatment, prognosis, outcomes History of tobacco abuse -Remote -Encouraged ongoing cessation CODE STATUS -Not ordered on admission--> will need discussed with patient Medications at Discharge Home Medications lisinopril 10 mg tablet 10 mg PO DAILY 01/16/14 aspirin 81 mg tablet,delayed release (Adult Low Dose Aspirin) 81 mg PO DAILY 04/11/20 metoprolol tartrate 25 mg tablet 25 mg PO BID 04/11/20 polyethylene glycol 400 0.25 % eye drops (Blink Tears) 1 - 2 drp ophthalmic (eye) DAILY PRN eye irritation 06/06/24 tamsulosin 0.4 mg capsule 0.4 mg PO QHS 06/06/24 atorvastatin 80 mg tablet 80 mg PO QHS #90 tabs 06/08/24 ticagrelor 90 mg tablet (Brilinta) 90 mg PO BID #180 tabs 06/08/24 Hospital Course Procedures 2-D Echocardiogram, Cardiac catheterization and EKG Summary of Care Provided Minutes Spent on Discharge: 38 Hospital Course: Mr. Gutierrez is a 68-year-old white male who presents emergency department at [facility] on 06/06/2024 with a chief complaint of chest pain. Patient does have a history of tobacco abuse, hypertension, and hyperlipidemia on no medications. He does have a family history of premature coronary disease in both parents. He indicated both parents underwent CABG in their 50s. Patient reported that about 2 weeks prior to presentation he started having chest pain that was intermittent. It began with a sensation of tightness before he went to bed and when he awoke in he had squeezing sensation that was moderate to severe. He reported at times will be 10 out of 10 but then would go away spontaneously after about 5 minutes. He was seen by his primary care physician about 1 week ago and was started on Z-Parvez for suspected bronchitis. He started antibiotics on Thursday. He was followed up by his PCP on the day of presentation and stat troponin was obtained and was found to be in 105 so he was referred emergently to the emergency department. Patient reported he had nothing like this previously. Patient did have a stress test about 8 years ago that was negative. Vital signs on presentation showed temperature 97.2, heart rate 60, blood pressure was 147/77, respiratory rate was 15 and pulse ox was 96% on room air. CBC was unremarkable. D-dimer was 0.56 but when age corrected was normal. Coags were unremarkable. Chemistry panel was unremarkable. Initial troponin was 105 with an uptrend to a peak of 242 at this time. Cholesterol was obtained and found to be total 146, LDL 92, HDL of 30. TSH was 3.08. EKG was sinus rhythm with a heart rate of 60, normal intervals and no ST-T wave changes concerning for acute ischemia. The case was discussed with cardiology by the emergency department physician they recommended a heparin drip and admission for cardiac catheterization. On 06/07/2023 he was taken to the [facility] at which time 1 drug-eluting stent was placed in the mid circumflex artery. He was started on Brilinta and maintained on aspirin, his home beta-jovani and lisinopril, and we added atorvastatin. Patient had no significant reperfusion arrhythmias and was monitored overnight. Echocardiogram was done on 05/30/2024 as well and demonstrated an EF of 45% with hypokinesis noted at the apex, trivial mitral valve insufficiency and no evidence of diastolic dysfunction. Patient was able to be discharged in stable condition on 06/08/2024. Prescriptions for the atorvastatin and Brilinta were written for in 90 days supply and refills were given on the Brilinta so he has enough for a year. He is to continue his home aspirin, metoprolol, and lisinopril. We have asked that he follow-up with cardiology and should be seen within the next 4 weeks. We have asked that he follow-up with his primary care physician within 1 week. I did strongly encourage cardiac rehab after discharge however the patient does live in labs also he was concerned that this may be a problem with travel. I did ask him to express that to cardiac rehab and then call to set up appointments. Patient was able to be discharged home in stable condition on 06/08/2024. 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 Overweight History of tobacco abuse Physical Exam Const alert, oriented x3, no apparent distress, no limitations and well nourished; Negative for average body habitus Constitutional Narrative: Overweight, older, white male, sitting up in bed, appears comfortable, nontoxic, at bedside General Appearance: cooperative, comfortable, well kempt and well developed Nutritional Appearance: overweight HEENT normocephalic, head/scalp atraumatic and moist oral mucous membranes HEENT Narrative: Mild hearing loss, Mallampati 3, no thrush Eyes EOMs intact bilaterally and conjunctivae normal Eyes Narrative: No scleral icterus Neck no lymphadenopathy and supple Neck Narrative: Trachea midline Resp normal respiratory effort, no retractions, no use of accessory muscles and clear to auscultation bilaterally Auscultation: Negative for rales, rhonchi or wheezes Cardio regular rate, regular rhythm, S1 normal heart sound, S2 normal heart sound, no murmurs, no rub, no gallops and no clicks GI normal to inspection, nondistended, normoactive bowel sounds, soft to palpation and non-tender GI Narrative: Protuberant abdomen Extremity no clubbing, cyanosis or edema Extremity Narrative: Right radial post catheterization dressing in place and is clean dry and intact, radial pulses are 2+ bilaterally, pedal pulses are 2+ bilaterally Skin no rashes or lesions noted, no wounds, skin turgor normal, no jaundice, no petechiae and no mottling Neuro oriented x3, moves all extremities and no focal motor deficits Speech: speech normal Psych affect normal Psych Narrative: Affect is still slightly odd, eye contact is good, patient interacts appropriately, still mildly anxious, is somewhat anxious too but expected for the situation Weight / BMI Weight Weight: 92.2 kg Body Mass Index (BMI) 29.1 ABG / Lab / Microbiology Data 06/08/24 04:59 06/08/24 04:59 Laboratory: Laboratory Results - last 24 hr 06/07/24 16:16: APTT 32.0 06/08/24 04:59: WBC 9.4, RBC 5.04, Hgb 14.9, Hct 44.3, MCV 87.9, MCH 29.6, MCHC 33.6, RDW Std Deviation 40.3, RDW Coeff of Yousuf 12.6, Plt Count 225, MPV 9.5, Sodium 137, Potassium 4.2, Chloride 108 H, Carbon Dioxide 23.0, Anion Gap 6, BUN 15, Creatinine 1.03, Estim Creat Clear Calc 76.15, Est GFR (MDRD) Af Amer 92, Est GFR (MDRD) Non-Af 76, BUN/Creatinine Ratio 14.6, Glucose 111 H, Calcium 9.2, Total Bilirubin 0.70, AST 12 L, ALT 18, Alkaline Phosphatase 96, Total Protein 6.7, Albumin 3.2, Globulin 3.5, Albumin/Globulin Ratio 0.9 Radiography Diagnostic Testing: Radiology Impression Echocardiogram 06/07/24 05:55 Interpretation Summary The estimated ejection fraction is 45 %. No evidence for diastolic dysfunction. [place] : Hypokinetic. Trivial mitral valve insufficiency. Ordering Physician: Anthony Kim Referring Physician: Sharif Javier Performed By: Rocio Boyle, ARAMIS, RVT D/C Instructions Discharge Diet: Low fat / Low cholesterol Discharge Activity: Return to Normal Activity Lifting Restrictions: Limit lifting greater than 5 pounds with your right hand for the next 5 day DC O2, CPAP, BIPAP Needs Home O2 Discharge instructions: No DC home with Oxygen: No Meaningful Use Info Meaningful Use Meaningful Use Diagnoses (Choose all that apply): AMI AMI/Post PCI/Angioplasty Aspirin given w/in 24hrs of arrival?: Yes ASA at discharge?: Yes Antiplatelet Therapy at Discharge:: Yes Statins at discharge?: Yes Gustavo/ARB at discharge?: Yes Beta Jovani at discharge?: Yes Done w/ Acute SC measure.: Yes Documented LVEF (%): 45 Ischemic Stroke Statin Dosing Therapy Reference: STATIN DOSE THERAPY REFERENCE: * Patients > 75 years receive moderate or high dose statin therapy. * Patients 75 years or YOUNGER should receive HIGH intensity statin dose unless contraindicated. You will be required to document reason for non-treatment if statin daily dose does not meet guidelines. HIGH DOSE STATIN THERAPY DAILY Atorvastatin > than or = to 40 mg Rosuvastatin > than or = to 20 mg Amlodipine + Atorvastatin > than or = to 2.5/40 mg Ezetimibe + Simvastatin 10/80 mg Simvastatin 80mg Discharge Plan Admission Admit Date/Time: 06/06/24 19:36 Primary Reason for Your Visit: Chest pain Attending Provider: Jana Ortega Primary Care Provider: Sharif Javier Consulting Providers: Noel Sanchez; Lynn Delong; Pravin Prakash; Chidi Ramsey; Mehran Guerrero; Opal Han; Rick Smith; Courtney Valencia; Adan Minor; Enzo Josue; Darrell Boyle NP; Brianne Raya; Emile Potts; Anthony Kim Instructions Additional Instructions / Restrictions: 1. Please take your aspirin and Brilinta as instructed without missing doses as this could cause a clot to occur in the area of your stent and cause another heart attack 2. Please follow-up with both your primary doctor and machine repair person as instructed below 3. We highly recommend participation in cardiac rehab after discharge Discharge Orders/Prescriptions Prescriptions: New atorvastatin 80 mg Tablet 80 mg PO QHS Qty: 90 0RF Brilinta 90 mg Tablet 90 mg PO BID Qty: 180 3RF Continued metoprolol tartrate 25 mg tablet 25 mg PO BID aspirin [Adult Low Dose Aspirin] 81 mg tablet,delayed release (DR/EC) 81 mg PO DAILY lisinopril 10 MG tablet 10 mg PO DAILY tamsulosin 0.4 mg capsule 0.4 mg PO QHS Blink Tears 0.25 % drops 1 - 2 drp ophthalmic (eye) DAILY PRN (Reason: eye irritation) Referrals / Follow Up: Mehran Guerrero MD [Med Staff - Active Staff] - Within 1 Month (If you do not hear from the machine repair person office by the end of the week call on Thursday to set up an appointment to be seen within the next month) Sharif Javier MD [Primary Care Provider] - 06/15/24 11:20 am Disposition Disposition (needs filled in before D/C Order can be placed): Home, Self Care Charges/Coding Visit Charges Inpatient E&M: 10902 Disch Hosp >30min
--- NOTE | 2024-06-08 12:12 | CASEMGMT ---
Patient has order for discharge. Patient discharging on Brilinta, [facility] called, copay is $163.86, free trial card applied. RN CM in to discuss needs at [facility], at bedside. RN CM updated patient regarding Brilinta copay and free trial savings card. Patient denies needs or help at discharge. Patient had no further questions or concerns.
--- NOTE | 2024-06-08 15:12 | CL.I_ITS ---
Patient Name: KANWAL PIZANO Study Date: 06/07/2024 Performing: Eli Valencia MD Ht: 70 inches 177.8 cm : 1955 Wt: 203.27 lbs 92.2 kg Age: 68 Gender: male BSA: 2.1 PROCEDURE(S) PERFORMED DC02-(98481)LHC/COR IC12-(31034/C9600)SHANE W/WO PTCA, SINGLE CORONARY ARTERY CLINICAL PROFILE AND CO-MORBIDITIES Heart Failure: None CAD Presentations: Non-STEMI. CONCLUSIONS CAD as described. Successful drug-eluting stent to mid circumflex. RECOMMENDATIONS DESCRIPTION OF PROCEDURE The patient arrived to the procedure lab. The risks and benefits of the procedure as well as a full description of our services here and lack of surgical backup were fully explained to the patient and/or their significant other prior to the catheterization. The Timeout was completed, verifying the correct patient and procedure. The patient's procedural site was prepped and draped in the usual fashion. Local anesthetic was given subcutaneously to right radial region with Lidocaine 2%. Using a modified Seldinger technique, arterial access was obtained via the right radial artery, a 6Fr sheath was inserted.. Left Coronary Artery selective angiography was performed in multiple views using a 5 Fr. JL3.5 catheter. Right Coronary Artery selective angiography was then performed in multiple views using a 5 Fr. JR 4 catheterThe images were reviewed and options discussed. A decision was then made to proceed with an Intervention, IVUS or other adjunct procedure. XB3 Guide catheter was inserted and engaged into the LCA. BMW Guide wire was advanced to the Circumflex. 2x12 Emerge Balloon catheter was inserted. Balloon catheter was advanced across lesion in the circumflex, mid. PTCA balloon inflated at 8 atms for 30 secs. Angiogram performed post balloon dilatation. 2.5x12 [place] Drug Eluting stent was inserted. Drug Eluting stent was advanced across the lesion in the circumflex, mid. 3x8 NC Emerge Balloon catheter was inserted. Balloon catheter was inserted post stent. Angiogram performed post stent deployment. The arterial sheath was pulled and a TR Band was applied for hemostasis 15cc of air CORONARY ANGIOGRAPHY DOMINANCE: Right Dominant LEFT MAIN: Mild luminal irregularities LEFT ANTERIOR DESCENDING ARTERY: MID LAD: 50 % Stenosis DIAGONAL 2: Ostial - 50 % Stenosis CIRCUMFLEX ARTERY: MID CIRC: 99 % Stenosis RIGHT CORONARY ARTERY: DISTAL RCA: 40-50 % Stenosis INTERVENTION INFORMATION LESION SITE: Circumflex (Mid) Lesion Complexity: High/C, chronic total occlusion: No, lesion at bifurcation: Yes, thrombus present: No, lesion length: 12 mm, culprit lesion: Yes, Previously treated lesion: No Pre Stenosis: 99 % Pre intervention SAMMI flow: 2 PROCEDURE: Drug Eluting Stent with pre and post dilatation Post Stenosis: 0 % Post intervention SAMMI flow: 3 Lesion Devices: [place] .014 190cm BMW [place] Straight Cordis 6 Fr XB3.0 100cm Guide Catheter Clyde Sci EMERGE MR 2.00x12 BALLOON Medtronic 2.50 x 12 [place]O FRONTIER SHANE Clyde Sci NC EMERGE MR 3.00x08 BALLOON COMPLICATIONS No Complications PROCEDURE MEDICATIONS Versed 1 mg IV Fentanyl 50 mcg IV Fentanyl 25 mcg IV Oxygen: 2 L/min via nasal cannula Brilinta 180 mg PO @ 06/07/2024 12:17:44 Heparin given IA 06/07/2024 11:53:10 Heparin 3000 unit(s) IV 06/07/2024 12:18:34 Verapamil 2.5mg, Ntg 100mcgs, 3000 units of Heparin given IA 06/07/2024 11:53:10 SUMMARY OF HEMODYNAMIC DATA Time AIR REST ECG 11:34:37 AO 113/66 (86) SA 11:58:50 AO 126/54 (80) 12:37:16 Signed By Eli Valencia MD On 06/08/2024 15:11:49 Eli Valencia MD
== END 2024-06-08 14:01 | disposition home or self-care (01) | DRG 322 ==
LOC: ED 19:11 → PCU 20:18
PROVIDERS: Specialist; Admitting Provider Internal Medicine; Emergency Provider Emergency Medicine; PCP Family Medicine; Visit Provider Internal Medicine
DX: I21.4 Non-ST elevation (NSTEMI) myocardial infarction (principal); N13.8 Other obstructive and reflux uropathy; I10 Essential (primary) hypertension; M19.90 Unspecified osteoarthritis, unspecified site; E78.5 Hyperlipidemia, unspecified; K42.9 Umbilical hernia without obstruction or gangrene; M54.9 Dorsalgia, unspecified; Z89.429 Acquired absence of other toe(s), unspecified side; I25.84 Coronary atherosclerosis due to calcified coronary lesion; I25.10 Atherosclerotic heart disease of native coronary artery without angina pectoris; I25.119 Atherosclerotic heart disease of native coronary artery with unspecified angina pectoris; E66.3 Overweight; Z79.82 Long term (current) use of aspirin; Z79.02 Long term (current) use of antithrombotics/antiplatelets; Z68.29 Body mass index [BMI] 29.0-29.9, adult; Z82.3 Family history of stroke; Z87.891 Personal history of nicotine dependence; N40.1 Benign prostatic hyperplasia with lower urinary tract symptoms; G89.29 Other chronic pain; Z79.899 Other long term (current) drug therapy
CPT/HCPCS: 36415; 71046; 80048; 80053; 80061; 84443; 84484; 85025; 85027; 85379; 85610; 85730; 92928; 93005; 93306; 93454; 99152; 99153; 99285; Q9957; Q9967; A4216; C1725; C1769; C1874; C1887; C1894; C8929; C9600; J1327

== ENCOUNTER → 2024-06-06 | Outpatient (CLI) | payer MEDICARE, SELFPAY ==
--- NOTE | 2024-06-06 11:43 | RAD_ITS ---
STUDY: X-RAY CHEST REASON FOR EXAM: Male, 68 years old. Chest pain. TECHNIQUE: Frontal and lateral views of the chest. COMPARISON: May 14, 2022 FINDINGS: Low volume inspiration with cardiomegaly and aortic tortuosity with calcification, unchanged. RAD/Chest PA and Lateral IMPRESSION: Stable chest with no acute or active cardiopulmonary disease. Electronically Signed: Shaq Chávez MD at 14:36 EST ,
[2024-06-06 15:40] LABS: Absolute Lymphocyte Count 2.35 X10^3/uL (0.83-4.51); Absolute Neutrophil Count 5.9 X10^3/uL (2.0-7.7); Basophil# 0.03 X10^3/uL; Basophil% 0.3 % (0-1); Eosinophil# 0.11 X10^3/uL; Eosinophils% 1.2 % (0-5); Hematocrit 47.6 % (40-54); Hemoglobin 15.9 g/dL (13.0-16.5); Lymphocyte # 2.35 X10^3/ul (0.83-4.51); Lymphocyte % 26.1 % (19-41); Mean Corp Hgb Conc 33.4 g/dL (32-36); Mean Corpuscular Hgb 29.9 pg (27.0-32.0); Mean Corpuscular Volume 89.6 fL (80-94); Mean Platelet Vol. 10.3 fl (6.2-12.0); Monocyte# 0.59 X10^3/uL; Monocyte% 6.5 % (0-10); NRBC Flagged by Analyzer 0 % (0-5); Neutrophil # 5.89 X10^3/uL (2.7-7.7); Neutrophil % 65.5 % (47-70); Platelet Count 277 K/mm3 (150-450); RBC Distribution Width CV 12.6 % (11.6-14.6); RBC Distribution Width SD 41.2 fl (35.1-43.9); Red Blood Count 5.31 M/mm3 (4.6-6.2)
[2024-06-06 15:58] LABS: Anion Gap 5 (5-15); BUN 15 mg/dL (7-18); Calcium,Total 9.5 mg/dL (8.5-10.1); Chloride 108 mmol/L (98-107); Creatinine, Serum 1.07 mg/dL (0.70-1.30); EST Glomerular Filtration Rate 72 mL/min (>60); Est Glom Filt Rate - Afr Amer 88 mL/min (>60); Glucose 93 mg/dL (74-106); Potassium 4.5 mmol/L (3.5-5.1); Sodium Level 139 mmol/L (136-145); Troponin-I HS 105 pg/mL (3.0-78.0)
[2024-06-06 16:18] LABS: D-Dimer Quantitative (DVT/PE) 0.56 FEU/ug/m (0.27-0.49)
== END | disposition home or self-care (01) ==
PROVIDERS: PCP Family Medicine; Referring Provider Family Medicine; Visit Provider Family Medicine
DX: R07.9 Chest pain, unspecified (principal)
CPT/HCPCS: 36415; 71046; 80048; 84484; 85025; 85379

== ENCOUNTER → 2024-08-11 | Outpatient (CLI) | payer MEDICARE, SELFPAY ==
[2024-08-11 10:49] LABS: Absolute Lymphocyte Count 1.78 X10^3/uL (0.83-4.51); Absolute Neutrophil Count 4.3 X10^3/uL (2.0-7.7); Basophil# 0.03 X10^3/uL; Basophil% 0.5 % (0-1); Eosinophil# 0.08 X10^3/uL; Eosinophils% 1.2 % (0-5); Hematocrit 43.3 % (40-54); Hemoglobin 14.4 g/dL (13.0-16.5); Lymphocyte # 1.78 X10^3/ul (0.83-4.51); Lymphocyte % 26.8 % (19-41); Mean Corp Hgb Conc 33.3 g/dL (32-36); Mean Corpuscular Hgb 29.9 pg (27.0-32.0); Mean Platelet Vol. 9.9 fl (6.2-12.0); Monocyte# 0.45 X10^3/uL; Monocyte% 6.8 % (0-10); NRBC Flagged by Analyzer 0 % (0-5); Neutrophil # 4.27 X10^3/uL (2.7-7.7); Neutrophil % 64.4 % (47-70); Platelet Count 245 K/mm3 (150-450); RBC Distribution Width CV 13.2 % (11.6-14.6); RBC Distribution Width SD 43.5 fl (35.1-43.9); Red Blood Count 4.81 M/mm3 (4.6-6.2); White Blood Count 6.6 K/mm3 (4.4-11.0)
[2024-08-11 11:47] LABS: ALB/GLOB Ratio 1.3 RATIO (0.9-2.4); AST(SGOT) 19 U/L (<=37); Alanine Aminotransfer ALT/SGPT 23 U/L (<=46); Albumin, Serum 3.9 g/dL (3.4-4.8); Alkaline Phosphatase 136 U/L (40-129); Anion Gap 9 (5-15); BUN 16 mg/dL (4-19); BUN/Creat Ratio 16.7 RATIO (10-20); Calcium,Total 9.3 mg/dL (7.6-11.0); Carbon Dioxide 24.6 mmol/L (21.0-32.0); Chloride 105 mmol/L (98-108); Cholesterol 84 mg/dL (<=200); Creatinine, Serum 0.97 mg/dL (0.70-1.20); EST Glomerular Filtration Rate 83 (>60); Glucose 111 mg/dL (70-99); High Density Lipoprotein 26 mg/dL; Low Density Lipoprotein Calc. 43 mg/dL; Potassium 4.5 mmol/L (3.3-5.1); Protein, Total 6.9 g/dL (5.9-8.4); Sodium Level 139 mmol/L (133-145); Total Bilirubin 0.63 mg/dL (0.00-1.30); Triglycerides 81 mg/dL; Very Low Density Lipoprotein 16 mg/dL (5-40)
[2024-08-11 16:23] LABS: Hemoglobin A1c 5.9 % (<=5.6)
== END | disposition home or self-care (01) ==
LOC: MFPLAB 09:00
PROVIDERS: PCP Family Medicine; Referring Provider Family Medicine; Visit Provider Family Medicine
DX: Z00.00 Encounter for general adult medical examination without abnormal findings (principal); R73.09 Other abnormal glucose
CPT/HCPCS: 36415; 80053; 80061; 83036; 85025

== ENCOUNTER → 2024-08-24 | Outpatient (CLI) | payer MEDICARE, SELFPAY ==
--- NOTE | 2024-08-24 13:25 | ECHOLC_ITS ---
Reason For Study Reason For Study: CHF Procedure This was a limited 2D transthoracic echocardiogram. The study was technically limited. Due to body habitus. Contrast injection was performed. Exam performed in department. Left Ventricle Normal size and thickness. The LV systolic function is normal. EF is 60 %. Unable to assess diastolic function based on available data. Right Ventricle Normal right ventricle. Atria The left and right atria are normal. Mitral Valve Normal mitral valve. Tricuspid Valve Normal tricuspid valve. Aortic Valve Trisinus/trileaflet aortic valve. Pulmonic Valve The pulmonic valve is not well visualized. Great Vessels Normal sized aortic root. Pericardium/Pleural No pericardial effusion. Medication 22 gauge I.V. with prn adaptor inserted into left arm. Diluted definity 2.5ml given slow IV push to enhance endocardial definition. MMode/2D Measurements & Calculations LVIDd: 5.3 cm IVSd: 1.0 cm Ao root diam: 3.5 cm LVIDs: 3.4 cm LVPWd: 1.0 cm RVDd: 3.2 cm FS: 35.8 % LAV(MOD-bp): 57.4 ml LVAd ap4: 35.3 cm2 LVAd ap2: 18.8 cm2 LAV(MOD-bp) Indexed: 28.2 ml/m2 LVLd ap4: 8.7 cm LVLd ap2: 7.1 cm LAV(MOD-sp2): 51.2 ml EDV(MOD-sp4): 120.3 ml EDV(MOD-sp2): 41.3 ml LAV(MOD-sp4): 55.1 ml EDV(sp4-el): 121.1 ml EDV(sp2-el): 42.5 ml LVAs ap4: 18.4 cm2 LVAs ap2: 11.1 cm2 LVLs ap4: 6.2 cm LVLs ap2: 5.6 cm ESV(MOD-sp4): 44.4 ml ESV(MOD-sp2): 18.6 ml ESV(sp4-el): 46.4 ml ESV(sp2-el): 18.9 ml EF(MOD-sp4): 63.1 % EF(MOD-sp2): 55.0 % EF(sp4-el): 61.7 % SV(MOD-sp4): 75.8 ml SV(MOD-sp2): 22.7 ml SV(sp4-el): 74.8 ml SI(MOD-sp4): 37.3 ml/m2 SI(MOD-sp2): 11.2 ml/m2 LA A4 area: 20.3 cm2 LA dimension(2D): 4.3 cm RA A4 area: 11.5 cm2 ECHO/Echo Limited w/Contrast Interpretation Summary The LV systolic function is normal. EF is 60 %. Ordering Physician: Darrell Boyle Referring Physician: Sharif Javier Performed By: Dahlia Kelly RDCS, RVT
== END | disposition home or self-care (01) ==
PROVIDERS: PCP Family Medicine; Referring Provider Nurse Practitioner Family; Visit Provider Nurse Practitioner Family
DX: I25.5 Ischemic cardiomyopathy (principal)
CPT/HCPCS: 93308; Q9957; A4216; C8924

== ENCOUNTER → 2025-02-15 | Outpatient (CLI) | payer MEDICARE, SELFPAY ==
[2025-02-15 18:54] LABS: AST(SGOT) 21 U/L (<=37); Alanine Aminotransfer ALT/SGPT 23 U/L (<=46); Albumin, Serum 4.2 g/dL (3.4-4.8); Alkaline Phosphatase 133 U/L (40-129); Anion Gap 11 (5-15); BUN 15 mg/dL (4-19); BUN/Creat Ratio 14.0 RATIO (10-20); Calcium,Total 9.8 mg/dL (7.6-11.0); Carbon Dioxide 25.0 mmol/L (21.0-32.0); Chloride 103 mmol/L (98-108); Cholesterol 113 mg/dL (<=200); Globulin 3.2 g/dL (2.2-4.2); Glucose 93 mg/dL (70-99); Low Density Lipoprotein Calc. 62 mg/dL; PSA,Total- Diagnostic 2.45 ng/mL (0.00-4.00); Potassium 4.5 mmol/L (3.3-5.1); Triglycerides 86 mg/dL; Very Low Density Lipoprotein 17 mg/dL (5-40); cholesterol:hdl ratio screen 3.29
== END | disposition home or self-care (01) ==
LOC: MFPLAB 14:14
PROVIDERS: PCP Family Medicine; Visit Provider Family Medicine
DX: I10 Essential (primary) hypertension (principal); N50.819 Testicular pain, unspecified
CPT/HCPCS: 36415; 80053; 80061; 84153

== ENCOUNTER → 2025-03-02 | Outpatient (CLI) | payer MEDICARE, SELFPAY ==
[2025-03-02 14:57] LABS: PSA,Total- Diagnostic 3.23 ng/mL (0.00-4.00)
== END | disposition home or self-care (01) ==
LOC: LAB 13:23
PROVIDERS: PCP Family Medicine; Referring Provider Urology; Visit Provider Urology
DX: R97.20 Elevated prostate specific antigen [PSA] (principal)
CPT/HCPCS: 36415; 84153